=== PATIENT | male | born 1960 | race Caucasian/White ===

== ENCOUNTER 2016-05-04 22:30 | Inpatient (IN) | payer OTHER, MEDICARE ==
[~2016-05-04] VITALS: Ht 170.2 cm; Wt 106.3 kg
[~2016-05-04 22:30] MED LIST: ACETAMINOPHEN1 EAC1 PO; ALDACTONE25 MG PO; ASPIRIN81 M2 PO; Aldactone PO; Aspirin E.C. PO; Ativan PO; BUSPIRONE HCL7.5 MG PO; CARVEDILOL12.5 MG PO; CILOSTAZOL50 MG PO; COLACE100 MG PO; COREG12.5 M1 PO; COREG6.25 M1 PO; Colace PO; Coreg PO; Diabeta,Micronase PO; ERGOCALCIF50000 UNIT PO; Ecotrin PO; FERROUS SULFAT325 MG PO; FOLIC ACID1 MG PO; GLIPIZIDE5 MG PO; GLUCOPHAGE1000 MG PO; Habitrol,Nicoderm CQ TD; INVOKANA300 MG PO; LANTUS 10100 UNITS/ SC; LANTUS 3 M100 UNITS1 SC; LASIX20 MG PO; LASIX40 MG PO; LEVEMIR FL100 UNIT/1 SC; LIPITOR40 MG PO; LISINOPRIL20 MG PO; LISINOPRIL5 MG PO; LOPRESSOR12.5 MG PO; LOVENOX40 MG/0.4 SC; METFORMIN HCL500 MG PO; NICOTINE PATCH1 EAC2 TD; NITROSTAT0.4 MG SL; NO MEDS; NOVOLOG 10100 UNITS/ SC; NOVOLOG PE100 UNITS/ SC; NOVOLOG100 UNIT/1 SC; NOVOLOG100 UNIT/3 SQ; Nitrostat,NitroQuick SL; Oscal 500 w/Vitamin PO; PANTOPRAZOLE SO40 MG PO; PHILLIPS'400 MG/5 M PO; PLAVIX75 MG PO; POLYETHYLENE GL17 GM PO; PRAVACHOL20 MG PO; PRAVACHOL40 MG PO; PRINIVIL10 MG PO; SENNA PLUS TAB1 EACH PO; SIMVASTATIN10 MG PO; SPIRONOLACTONE25 MG PO; THERAGRAN1 TABLET PO; TYLENOL REGULA325 MG PO; Theragran PO; Tylenol Regular Stre PO; WARFARIN SODIU2.5 MG PO; WARFARIN SODIUM5 MG PO; WELLBUTRIN XL150 MG PO; ZESTRIL,PRINIVI10 M1 PO; Zestril,Prinivil PO; Zocor PO
[2016-05-04 23:26] LABS: HEMATOCRIT 39.9 % (38.0-50.0); MCHC 33.6 G/DL (30.0-36.0); MCV 77.5 FL (86-99); MEAN PLAT.VOLUME 9.4 uM^3 (9.0-12.4); PLATELET COUNT 356 K/uL (156-360); RBC DIS.WIDTH-CV 16.2 % (11.8-14.6); RBC DIS.WIDTH-SD 44.4 % (39-53); RED BLOOD COUNT 5.15 M/uL (4.00-5.50); WHITE BLOOD COUNT 13.1 K/uL (4.1-10.2)
[2016-05-04 23:40] LABS: CHLORIDE 101 mEq/L (99-109); POTASSIUM 4.5 mEq/L (3.7-5.4); SODIUM 130 mEq/L (136-147)
[2016-05-04 23:43] LABS: ANION GAP 9 MEQ/L (2-14)
[2016-05-04 23:45] LABS: GFR ESTIMATE (CALCULATED) > 59 mL/min/
[2016-05-04 23:46] LABS: UREA NITROGEN (BUN) 31 mg/dL (9-23)
[2016-05-05 00:09] LABS: TROP-I INTERPRETATION NEGATIVE; TROPONIN-I 0.12 ng/mL (0.0-0.30)
[2016-05-05 00:26] LABS: CREATINE KINASE 65 IU/L (1-294)
[2016-05-05 00:27] LABS: GLUCOSE 646 mg/dL (70-99)
[2016-05-05] MEDS ORDERED: CARVEDILOL6.25 MG PO (01:03)
[2016-05-05] MEDS ORDERED: LISINOPRIL20 MG PO (01:03)
[2016-05-05] MEDS ORDERED: PROTONIX40 MG PO (01:04)
[2016-05-05] MEDS ORDERED: METFORMIN HCL500 MG PO (01:04)
[2016-05-05] MEDS ORDERED: LANTUS 10100 UNITS/ SC (01:05)
[2016-05-05] MEDS ORDERED: GLIPIZIDE5 MG PO (01:05)
[2016-05-05 01:06] LABS: CARBON DIOXIDE (BICARBONATE) 23.4 MEQ/L (20-31)
[2016-05-05] MEDS ORDERED: GABAPENTIN300 MG PO (01:06)
[2016-05-05] MEDS ORDERED: TRAMADOL HCL50 MG PO (01:06)
[2016-05-05] MEDS ORDERED: CITALOPRAM HBR10 MG PO (01:06)
[2016-05-05] MEDS ORDERED: LANTUS 3 M100 UNITS1 SC (01:07)
[2016-05-05 03:00] VITALS: BP 159/81
[2016-05-05 06:37] LABS: TROP-I INTERPRETATION NEGATIVE; TROPONIN-I 0.14 ng/mL (0.0-0.30)
[2016-05-05 06:59] LABS: ANION GAP 10 MEQ/L (2-14); CHLORIDE 97 MEQ/L (99-109); GFR ESTIMATE (CALCULATED) > 59 mL/min/; GLUCOSE 439 mg/dL (70-99); POTASSIUM 3.8 MEQ/L (3.7-5.4); SAMPLE HEMOLYSIS CHECK 0; SAMPLE ICTERIC CHECK 0; SAMPLE LIPEMIA CHECK 0; SODIUM 132 MEQ/L (136-147); UREA NITROGEN (BUN) 27 mg/dL (9-23)
[2016-05-05 07:45] VITALS: BP 188/96
[2016-05-05 11:00] LABS: POINT-OF-CARE METER ID UU13113781
[2016-05-05 11:27] LABS: TROP-I INTERPRETATION NEGATIVE; TROPONIN-I 0.13 ng/mL (0.0-0.30)
[2016-05-05 11:58] VITALS: BP 144/70
[2016-05-05 12:44] LABS: POINT-OF-CARE METER ID UU13113781
[2016-05-05 12:44] LABS: POINT-OF-CARE METER ID UU14174216
[2016-05-05 12:45] LABS: POINT-OF-CARE METER ID UU13113702
[2016-05-05 15:58] LABS: POINT-OF-CARE METER ID UU14174216
[2016-05-05 16:34] VITALS: BP 142/73
[2016-05-05 19:00] VITALS: BP 160/74
[2016-05-05 22:48] LABS: POINT-OF-CARE METER ID UU13113781
[2016-05-06 00:28] VITALS: BP 134/64
[2016-05-06 04:00] VITALS: BP 137/62
[2016-05-06 08:10] VITALS: BP 142/73
[2016-05-06 11:30] VITALS: BP 188/79
[2016-05-06 12:22] LABS: POINT-OF-CARE METER ID UU14174216
[2016-05-06 16:00] VITALS: BP 143/72
[2016-05-06 17:28] LABS: POINT-OF-CARE METER ID UU14174216
[2016-05-06 19:15] VITALS: BP 131/60
[2016-05-06 21:39] LABS: POINT-OF-CARE METER ID UU13113698
[2016-05-07] VITALS (7 sets, daily range): BP systolic 129–170; BP diastolic 58–78
[2016-05-07 07:25] LABS: HEMATOCRIT 40.7 % (38.0-50.0); MCHC 32.7 G/DL (30.0-36.0); MCV 79.6 FL (86-99); MEAN PLAT.VOLUME 9.4 uM^3 (9.0-12.4); PLATELET COUNT 319 K/uL (156-360); RBC DIS.WIDTH-CV 16.4 % (11.8-14.6); RED BLOOD COUNT 5.11 M/uL (4.00-5.50); WHITE BLOOD COUNT 12.6 K/uL (4.1-10.2)
[2016-05-07 07:32] LABS: BASOPHIL COUNT 0.1 K/uL (0-0.1); EOSINOPHIL (%) 2.3 % (0-5); EOSINOPHIL COUNT 0.3 K/uL (0-0.3); IMMATURE GRANULOCYTE (%) 0.9 % (0.0-0.7); IMMATURE GRANULOCYTE COUNT 0.1 K/uL; LYMPHOCYTE COUNT 1.9 K/uL (1.0-2.8); MONOCYTE (%) 10.5 % (3-12); MONOCYTE COUNT 1.3 K/uL (0-0.8); NEUTROPHIL (%) 70.8 % (45-76); NEUTROPHIL COUNT 8.9 K/uL (1.8-6.4)
[2016-05-07 07:46] LABS: ANION GAP 9 MEQ/L (2-14); CHLORIDE 99 MEQ/L (99-109); GFR ESTIMATE (CALCULATED) > 59 mL/min/; SAMPLE HEMOLYSIS CHECK 0; SAMPLE ICTERIC CHECK 0; SAMPLE LIPEMIA CHECK 0; SODIUM 134 MEQ/L (136-147); UREA NITROGEN (BUN) 31 mg/dL (9-23)
[2016-05-07 07:49] LABS: GLUCOSE 115 mg/dL (70-99)
[2016-05-08 03:41] VITALS: BP 132/61
[2016-05-08 06:02] LABS: HEMATOCRIT 41.3 % (38.0-50.0); MCH 26.3 PG (29.0-34.0); MCHC 32.7 G/DL (30.0-36.0); MCV 80.4 FL (86-99); MEAN PLAT.VOLUME 9.7 uM^3 (9.0-12.4); PLATELET COUNT 323 K/uL (156-360); RBC DIS.WIDTH-CV 16.4 % (11.8-14.6); RBC DIS.WIDTH-SD 48.1 % (39-53); RED BLOOD COUNT 5.14 M/uL (4.00-5.50); WHITE BLOOD COUNT 11.2 K/uL (4.1-10.2)
[2016-05-08 06:15] LABS: EOSINOPHIL (%) 1.9 % (0-5); EOSINOPHIL COUNT 0.2 K/uL (0-0.3); IMMATURE GRANULOCYTE COUNT 0.1 K/uL; LYMPHOCYTE COUNT 1.7 K/uL (1.0-2.8); MONOCYTE (%) 8.8 % (3-12); NEUTROPHIL (%) 72.6 % (45-76); NEUTROPHIL COUNT 8.1 K/uL (1.8-6.4)
[2016-05-08 06:28] LABS: ANION GAP 9 MEQ/L (2-14); CHLORIDE 100 MEQ/L (99-109); GFR ESTIMATE (CALCULATED) 56 mL/min/; GLUCOSE 160 mg/dL (70-99); POTASSIUM 4.1 MEQ/L (3.7-5.4); SAMPLE HEMOLYSIS CHECK 0; SAMPLE ICTERIC CHECK 0; SAMPLE LIPEMIA CHECK 0; SODIUM 133 MEQ/L (136-147); UREA NITROGEN (BUN) 31 mg/dL (9-23)
[2016-05-08 06:50] VITALS: BP 131/61
[2016-05-08 11:00] VITALS: BP 136/64
[2016-05-08] MEDS ORDERED: NOVOLOG PE100 UNITS/ SC (13:10)
[2016-05-08] MEDS ORDERED: LEVEMIR100 UNIT/2 SC (13:10)
[2016-05-08] MEDS ORDERED: Zeasorb Antifungal T TP (13:11)
[2016-05-08] MEDS ORDERED: TRAMADOL HCL50 MG PO (13:11)
[2016-05-08] MEDS ORDERED: LASIX40 MG PO (13:12)
[2016-05-08] MEDS ORDERED: MILK OF MAGNESI10 ML PO (13:13)
== END 2016-05-08 15:26 | DRG 293 ==
LOC: EME → EDBD 22:30 → EME 22:30 → 2EAST 05-05 01:50 → EDOF 05-05 01:50 → 4EAST 05-05 02:48 → 2EAST 05-07 00:01
PROVIDERS: Emergency Medicine; Family Medicine
DX: I50.41 Acute combined systolic (congestive) and diastolic (congestive) heart failure (principal); E11.65 Type 2 diabetes mellitus with hyperglycemia; E11.42 Type 2 diabetes mellitus with diabetic polyneuropathy; I70.213 Atherosclerosis of native arteries of extremities with intermittent claudication, bilateral legs; I25.10 Atherosclerotic heart disease of native coronary artery without angina pectoris; J44.9 Chronic obstructive pulmonary disease, unspecified; I25.5 Ischemic cardiomyopathy; I10 Essential (primary) hypertension; E78.5 Hyperlipidemia, unspecified; G47.33 Obstructive sleep apnea (adult) (pediatric); F41.9 Anxiety disorder, unspecified; F32.9 Major depressive disorder, single episode, unspecified; F17.210 Nicotine dependence, cigarettes, uncomplicated; E66.9 Obesity, unspecified; I25.2 Old myocardial infarction; Z91.14 Patient's other noncompliance with medication regimen; Z68.38 Body mass index [BMI] 38.0-38.9, adult; Z86.73 Personal history of transient ischemic attack (TIA), and cerebral infarction without residual deficits; Z95.5 Presence of coronary angioplasty implant and graft; Z95.1 Presence of aortocoronary bypass graft
CPT/HCPCS: 71020; 80048; 82009; 82550; 82803; 82948; 83880; 84484; 85025; 85027; 93005; 94640; 94799; 97530 GO; 99281; 99285; J1650; J1815; J1940

== ENCOUNTER 2016-07-29 09:30 | Inpatient (IN) | payer OTHER, MEDICARE ==
[~2016-07-29] VITALS: Ht 170.2 cm; Wt 108.2 kg
[~2016-07-29 09:30] MED LIST changes: +CARVEDILOL6.25 MG PO; +CITALOPRAM HBR10 MG PO; +GABAPENTIN300 MG PO; +LEVEMIR100 UNIT/2 SC; +MILK OF MAGNESI10 ML PO; +PROTONIX40 MG PO; +TRAMADOL HCL50 MG PO; +Zeasorb Antifungal T TP
[2016-07-29 10:22] LABS: BASOPHIL COUNT 0.1 K/uL (0-0.1); EOSINOPHIL (%) 1.1 % (0-5); EOSINOPHIL COUNT 0.2 K/uL (0-0.3); HEMATOCRIT 43.1 % (38.0-50.0); IMMATURE GRANULOCYTE (%) 0.9 % (0.0-0.7); IMMATURE GRANULOCYTE COUNT 0.2 K/uL; LYMPHOCYTE COUNT 1.7 K/uL (1.0-2.8); MCH 25.8 PG (29.0-34.0); MCHC 31.1 G/DL (30.0-36.0); MEAN PLAT.VOLUME 9.4 uM^3 (9.0-12.4); MONOCYTE (%) 4.9 % (3-12); MONOCYTE COUNT 1.1 K/uL (0-0.8); NEUTROPHIL (%) 85.1 % (45-76); PLATELET COUNT 350 K/uL (156-360); RBC DIS.WIDTH-CV 17.4 % (11.8-14.6); RBC DIS.WIDTH-SD 52.7 % (39-53); RED BLOOD COUNT 5.19 M/uL (4.00-5.50); WHITE BLOOD COUNT 22.4 K/uL (4.1-10.2)
[2016-07-29 10:35] LABS: CHLORIDE 100 mEq/L (99-109); POTASSIUM 4.5 mEq/L (3.7-5.4); SODIUM 135 mEq/L (136-147)
[2016-07-29 10:37] LABS: GLUCOSE 222 mg/dL (70-99)
[2016-07-29 10:38] LABS: ANION GAP 13 MEQ/L (2-14)
[2016-07-29 10:41] LABS: GFR ESTIMATE (CALCULATED) > 59 mL/min/; UREA NITROGEN (BUN) 24 mg/dL (9-23)
[2016-07-29 10:42] LABS: TROP-I INTERPRETATION NEGATIVE; TROPONIN-I 0.03 ng/mL (0.0-0.30)
[2016-07-29] MEDS ORDERED: LO-DOSE ASPIRIN81 M2 PO (15:08)
[2016-07-29] MEDS ORDERED: LASIX40 MG PO (15:09)
[2016-07-29] MEDS ORDERED: LANTUS 10100 UNITS/ SC (15:11)
[2016-07-29 15:59] LABS: ADD MIUA? YES; BILIRUBIN NEGATIVE; BLOOD NEGATIVE; COLOR YELLOW ((YELLOW)); GLUCOSE (STRIP) NEGATIVE; KETONES NEGATIVE; LEUKOCYTES NEGATIVE; NITRITE NEGATIVE; PROTEIN (STRIP) 100; SPECIFIC GRAVITY 1.013 (1.000-1.030); UROBILINOGEN 0.2 MG/DL (0.2-1.0)
[2016-07-29 16:17] LABS: BACTERIA NONE SEEN /HPF; EPITHELIAL CELLS NONE SEEN /HPF; HYALINE CASTS 0-5 /LPF; MUCUS NONE SEEN /LPF; RED BLOOD CELLS 0-5 /HPF (0-5); UCUL ADDED? NO; WHITE BLOOD CELLS 0-5 /HPF (0-5)
[2016-07-29 19:30] VITALS: BP 135/61
[2016-07-29 23:48] VITALS: BP 136/65
[2016-07-30 03:46] VITALS: BP 129/60
[2016-07-30 06:18] LABS: POINT-OF-CARE METER ID UU13113725
[2016-07-30 07:16] LABS: ANION GAP 10 MEQ/L (2-14); CHLORIDE 100 MEQ/L (99-109); GFR ESTIMATE (CALCULATED) > 59 mL/min/; POTASSIUM 4.3 MEQ/L (3.7-5.4); SAMPLE HEMOLYSIS CHECK 0; SAMPLE ICTERIC CHECK 0; SAMPLE LIPEMIA CHECK 0; SODIUM 137 MEQ/L (136-147); UREA NITROGEN (BUN) 27 mg/dL (9-23)
[2016-07-30 07:17] LABS: GLUCOSE 87 mg/dL (70-99)
[2016-07-30 07:25] LABS: BASOPHIL COUNT 0.1 K/uL (0-0.1); EOSINOPHIL (%) 1.8 % (0-5); EOSINOPHIL COUNT 0.2 K/uL (0-0.3); HEMATOCRIT 40.9 % (38.0-50.0); IMMATURE GRANULOCYTE (%) 0.7 % (0.0-0.7); IMMATURE GRANULOCYTE COUNT 0.1 K/uL; LYMPHOCYTE COUNT 2.9 K/uL (1.0-2.8); MCH 26.4 PG (29.0-34.0); MCHC 31.5 G/DL (30.0-36.0); MCV 83.6 FL (86-99); MEAN PLAT.VOLUME 9.1 uM^3 (9.0-12.4); MONOCYTE (%) 9.3 % (3-12); MONOCYTE COUNT 1.3 K/uL (0-0.8); PLATELET COUNT 324 K/uL (156-360); RBC DIS.WIDTH-CV 17.5 % (11.8-14.6); RBC DIS.WIDTH-SD 53.4 % (39-53); RED BLOOD COUNT 4.89 M/uL (4.00-5.50)
[2016-07-30 07:37] LABS: WHITE BLOOD COUNT 13.6 K/uL (4.1-10.2)
[2016-07-30 08:19] VITALS: BP 177/84
[2016-07-30 12:00] VITALS: BP 187/86
[2016-07-30 16:00] VITALS: BP 130/58
[2016-07-30 16:50] LABS: POINT-OF-CARE METER ID UU13113725
[2016-07-30 19:04] VITALS: BP 144/67
[2016-07-30 22:42] VITALS: BP 151/81
[2016-07-31 03:03] VITALS: BP 139/65
[2016-07-31 05:36] LABS: BASOPHIL COUNT 0.1 K/uL (0-0.1); EOSINOPHIL (%) 1.2 % (0-5); EOSINOPHIL COUNT 0.2 K/uL (0-0.3); HEMATOCRIT 40.4 % (38.0-50.0); IMMATURE GRANULOCYTE (%) 0.5 % (0.0-0.7); IMMATURE GRANULOCYTE COUNT 0.1 K/uL; LYMPHOCYTE COUNT 2.1 K/uL (1.0-2.8); MCH 26.4 PG (29.0-34.0); MCHC 31.9 G/DL (30.0-36.0); MCV 82.8 FL (86-99); MEAN PLAT.VOLUME 8.9 uM^3 (9.0-12.4); MONOCYTE (%) 8.5 % (3-12); MONOCYTE COUNT 1.2 K/uL (0-0.8); NEUTROPHIL (%) 73.7 % (45-76); PLATELET COUNT 297 K/uL (156-360); RBC DIS.WIDTH-CV 17.3 % (11.8-14.6); RBC DIS.WIDTH-SD 52.3 % (39-53); RED BLOOD COUNT 4.88 M/uL (4.00-5.50); WHITE BLOOD COUNT 13.5 K/uL (4.1-10.2)
[2016-07-31 06:03] LABS: ANION GAP 11 MEQ/L (2-14); CHLORIDE 99 MEQ/L (99-109); GFR ESTIMATE (CALCULATED) 44 mL/min/; GLUCOSE 97 mg/dL (70-99); POTASSIUM 4.3 MEQ/L (3.7-5.4); SAMPLE HEMOLYSIS CHECK 0; SAMPLE ICTERIC CHECK 0; SAMPLE LIPEMIA CHECK 0; SODIUM 135 MEQ/L (136-147); UREA NITROGEN (BUN) 31 mg/dL (9-23)
[2016-07-31 07:30] VITALS: BP 139/69
[2016-07-31 11:16] VITALS: BP 145/65
[2016-07-31 14:12] LABS: ALKALINE PHOSPHATASE 79 IU/L (3-129); DIRECT BILIRUBIN 0.1 mg/dL (0.0-0.3); LIPASE 16 U/L (1.0-51.0); TOTAL BILIRUBIN 0.4 MG/DL (0.0-1.0)
[2016-07-31 15:24] VITALS: BP 111/57
[2016-07-31 19:09] VITALS: BP 117/56
[2016-07-31 21:12] LABS: POINT-OF-CARE METER ID UU13113725
[2016-07-31 23:24] VITALS: BP 120/59
[2016-08-01] VITALS (7 sets, daily range): BP systolic 99–156; BP diastolic 51–86
[2016-08-01 06:56] LABS: BASOPHIL COUNT 0.1 K/uL (0-0.1); EOSINOPHIL COUNT 0.3 K/uL (0-0.3); HEMATOCRIT 39.8 % (38.0-50.0); IMMATURE GRANULOCYTE (%) 0.9 % (0.0-0.7); IMMATURE GRANULOCYTE COUNT 0.1 K/uL; INSTRUMENT ABS NEUTROPHIL CT 9.3 K/uL; LYMPHOCYTE COUNT 1.9 K/uL (1.0-2.8); MCH 26.6 PG (29.0-34.0); MCHC 31.9 G/DL (30.0-36.0); MCV 83.3 FL (86-99); MEAN PLAT.VOLUME 9.3 uM^3 (9.0-12.4); MONOCYTE (%) 9.5 % (3-12); MONOCYTE COUNT 1.2 K/uL (0-0.8); NEUTROPHIL (%) 72.4 % (45-76); NEUTROPHIL COUNT 9.3 K/uL (1.8-6.4); PLATELET COUNT 291 K/uL (156-360); RBC DIS.WIDTH-CV 17.2 % (11.8-14.6); RBC DIS.WIDTH-SD 51.8 % (39-53); RED BLOOD COUNT 4.78 M/uL (4.00-5.50); WHITE BLOOD COUNT 12.8 K/uL (4.1-10.2)
[2016-08-01 07:20] LABS: ANION GAP 8 MEQ/L (2-14); CHLORIDE 99 MEQ/L (99-109); GFR ESTIMATE (CALCULATED) 44 mL/min/; POTASSIUM 4.2 MEQ/L (3.7-5.4); SAMPLE HEMOLYSIS CHECK 0; SAMPLE ICTERIC CHECK 0; SAMPLE LIPEMIA CHECK 0; SODIUM 132 MEQ/L (136-147); UREA NITROGEN (BUN) 32 mg/dL (9-23)
[2016-08-01 07:22] LABS: GLUCOSE 156 mg/dL (70-99)
[2016-08-01 16:53] LABS: POINT-OF-CARE METER ID UU13113725
[2016-08-01 20:55] LABS: POINT-OF-CARE METER ID UU13113725
[2016-08-02 03:23] VITALS: BP 155/81
[2016-08-02 05:44] LABS: POINT-OF-CARE METER ID UU13113725
[2016-08-02 06:53] LABS: BASOPHIL COUNT 0.1 K/uL (0-0.1); EOSINOPHIL (%) 2.5 % (0-5); EOSINOPHIL COUNT 0.3 K/uL (0-0.3); IMMATURE GRANULOCYTE (%) 0.9 % (0.0-0.7); IMMATURE GRANULOCYTE COUNT 0.1 K/uL; INSTRUMENT ABS NEUTROPHIL CT 8.5 K/uL; LYMPHOCYTE COUNT 1.7 K/uL (1.0-2.8); MCH 26.4 PG (29.0-34.0); MCHC 31.5 G/DL (30.0-36.0); MCV 83.9 FL (86-99); MEAN PLAT.VOLUME 9.2 uM^3 (9.0-12.4); MONOCYTE (%) 8.5 % (3-12); NEUTROPHIL (%) 72.9 % (45-76); NEUTROPHIL COUNT 8.5 K/uL (1.8-6.4); PLATELET COUNT 280 K/uL (156-360); RED BLOOD COUNT 4.77 M/uL (4.00-5.50); WHITE BLOOD COUNT 11.6 K/uL (4.1-10.2)
[2016-08-02 07:12] LABS: ANION GAP 9 MEQ/L (2-14); CHLORIDE 102 MEQ/L (99-109); GFR ESTIMATE (CALCULATED) 56 mL/min/; GLUCOSE 157 mg/dL (70-99); POTASSIUM 4.9 MEQ/L (3.7-5.4); SAMPLE HEMOLYSIS CHECK 0; SAMPLE ICTERIC CHECK 0; SAMPLE LIPEMIA CHECK 0; SODIUM 135 MEQ/L (136-147); UREA NITROGEN (BUN) 32 mg/dL (9-23)
[2016-08-02 07:17] VITALS: BP 162/73
[2016-08-02] MEDS ORDERED: PROTONIX40 MG PO (12:37)
[2016-08-02] MEDS ORDERED: LEVOFLOXACIN750 MG PO (12:37)
[2016-08-02] MEDS ORDERED: REGLAN5 MG PO (12:37)
[2016-08-02 13:09] VITALS: BP 156/72
== END 2016-08-02 14:47 | disposition home or self-care (01) | DRG 191 ==
LOC: EME → EDBD 09:30 → EME 09:30 → 5EAST 13:43 → EDOF 13:43 → 5EAST 15:37
PROVIDERS: Emergency Medicine; Family Medicine
DX: J44.1 Chronic obstructive pulmonary disease with (acute) exacerbation (principal); N17.9 Acute kidney failure, unspecified; I25.5 Ischemic cardiomyopathy; I11.0 Hypertensive heart disease with heart failure; I50.22 Chronic systolic (congestive) heart failure; E11.42 Type 2 diabetes mellitus with diabetic polyneuropathy; E78.5 Hyperlipidemia, unspecified; R09.02 Hypoxemia; I25.10 Atherosclerotic heart disease of native coronary artery without angina pectoris; Z86.73 Personal history of transient ischemic attack (TIA), and cerebral infarction without residual deficits; G47.33 Obstructive sleep apnea (adult) (pediatric); I25.2 Old myocardial infarction; E66.9 Obesity, unspecified; Z68.37 Body mass index [BMI] 37.0-37.9, adult; F41.9 Anxiety disorder, unspecified; F32.9 Major depressive disorder, single episode, unspecified; F17.210 Nicotine dependence, cigarettes, uncomplicated; D72.829 Elevated white blood cell count, unspecified
CPT/HCPCS: 71010; 71275; 80048; 80076; 81003; 82565; 82948; 83690; 84484; 84520; 85025; 85027; 87040; 93005; 94640; 94640 76; 94799; 97530 GO; 97530 GP; 99202; 99281; 99285; J1650; J1815; J1956; J2405; J2765; J7030

== ENCOUNTER 2016-10-12 00:13 | Emergency (ER) | payer OTHER ==
[~2016-10-12] VITALS: Ht 170.2 cm; Wt 117.0 kg
[~2016-10-12 00:13] MED LIST changes: +LEVOFLOXACIN750 MG PO; +LO-DOSE ASPIRIN81 M2 PO; +REGLAN5 MG PO
[2016-10-12 02:40] VITALS: BP 165/89
== END 2016-10-12 02:42 | disposition home or self-care (01) ==
LOC: EME → EDBD 00:13 → EME 02:42
DX: T14.8 Other injury of unspecified body region (principal); S00.91XA Abrasion of unspecified part of head, initial encounter; W18.30XA Fall on same level, unspecified, initial encounter; I10 Essential (primary) hypertension; J44.9 Chronic obstructive pulmonary disease, unspecified; E78.5 Hyperlipidemia, unspecified; Z95.1 Presence of aortocoronary bypass graft; I25.2 Old myocardial infarction; Z86.73 Personal history of transient ischemic attack (TIA), and cerebral infarction without residual deficits; Z79.84 Long term (current) use of oral hypoglycemic drugs; Z79.899 Other long term (current) drug therapy; Z79.4 Long term (current) use of insulin; Z79.82 Long term (current) use of aspirin; F17.200 Nicotine dependence, unspecified, uncomplicated
CPT/HCPCS: 70450; 99281; 99284

== ENCOUNTER 2016-11-13 14:16 | Emergency (ER) | payer OTHER ==
[~2016-11-13] VITALS: Ht 170.2 cm; Wt 110.1 kg
[2016-11-13 14:42] VITALS: BP 196/91
[2016-11-13] MEDS ORDERED: LIDODERM 5% P1 PATCH TD (16:26)
[2016-11-13] MEDS ORDERED: FLEXERIL10 MG PO (16:26)
[2016-11-13] MEDS ORDERED: NAPROSYN500 MG PO (16:26)
== END 2016-11-13 16:54 | disposition home or self-care (01) ==
LOC: EME 14:16
DX: M54.5 Low back pain (principal); W01.0XXA Fall on same level from slipping, tripping and stumbling without subsequent striking against object, initial encounter; I10 Essential (primary) hypertension; E11.9 Type 2 diabetes mellitus without complications; Z79.84 Long term (current) use of oral hypoglycemic drugs; Z86.73 Personal history of transient ischemic attack (TIA), and cerebral infarction without residual deficits; Z89.429 Acquired absence of other toe(s), unspecified side; Z95.1 Presence of aortocoronary bypass graft; F17.200 Nicotine dependence, unspecified, uncomplicated
CPT/HCPCS: 99281; 99284; J1885

== ENCOUNTER 2016-11-30 12:28 | Inpatient (IN) | payer OTHER ==
[~2016-11-30] VITALS: Ht 170.2 cm; Wt 109.9 kg
[~2016-11-30 12:28] MED LIST changes: +FLEXERIL10 MG PO; +LIDODERM 5% P1 PATCH TD; +NAPROSYN500 MG PO
[2016-11-30 13:06] LABS: CREATININE 0.8 mg/dL (0.6-1.3); POTASSIUM 4.4 mEq/L (3.7-5.4)
[2016-11-30 13:16] LABS: BASOPHIL COUNT 0.1 K/uL (0-0.1); EOSINOPHIL (%) 1.7 % (0-5); EOSINOPHIL COUNT 0.2 K/uL (0-0.3); HEMATOCRIT 41.3 % (38.0-50.0); IMMATURE GRANULOCYTE (%) 1.1 % (0.0-0.7); IMMATURE GRANULOCYTE COUNT 0.1 K/uL; INSTRUMENT ABS NEUTROPHIL CT 8.9 K/uL; LYMPHOCYTE COUNT 1.6 K/uL (1.0-2.8); MCH 24.7 PG (29.0-34.0); MCHC 31.2 G/DL (30.0-36.0); MEAN PLAT.VOLUME 9.5 uM^3 (9.0-12.4); MONOCYTE (%) 6.7 % (3-12); MONOCYTE COUNT 0.8 K/uL (0-0.8); NEUTROPHIL (%) 76.5 % (45-76); NEUTROPHIL COUNT 8.9 K/uL (1.8-6.4); PLATELET COUNT 292 K/uL (156-360); RBC DIS.WIDTH-CV 17.7 % (11.8-14.6); RBC DIS.WIDTH-SD 49.3 % (39-53); RED BLOOD COUNT 5.23 M/uL (4.00-5.50); WHITE BLOOD COUNT 11.6 K/uL (4.1-10.2)
[2016-11-30 13:22] LABS: CARBON DIOXIDE (BICARBONATE) 21.7 MEQ/L (20-31)
[2016-11-30 13:28] LABS: CHLORIDE 99 mEq/L (99-109); POTASSIUM 4.4 mEq/L (3.7-5.4); SODIUM 130 mEq/L (136-147)
[2016-11-30 13:31] LABS: ANION GAP 11 MEQ/L (2-14)
[2016-11-30 13:32] LABS: TOTAL BILIRUBIN 0.5 mg/dL (0.0-1.0)
[2016-11-30 13:33] LABS: ALKALINE PHOSPHATASE 112 IU/L (3-129)
[2016-11-30 13:34] LABS: GFR ESTIMATE (CALCULATED) > 59 mL/min/
[2016-11-30 13:35] LABS: DIRECT BILIRUBIN 0.3 mg/dL (0.0-0.3); UREA NITROGEN (BUN) 17 mg/dL (9-23)
[2016-11-30 13:37] LABS: LIPASE 23 U/L (1.0-51.0)
[2016-11-30 13:38] LABS: GLUCOSE 560 mg/dL (70-99)
[2016-11-30 14:30] LABS: ADD MIUA? YES; BILIRUBIN NEGATIVE; BLOOD NEGATIVE; COLOR STRAW ((YELLOW)); GLUCOSE (STRIP) >=500; KETONES NEGATIVE; LEUKOCYTES NEGATIVE; NITRITE NEGATIVE; PROTEIN (STRIP) 100; SPECIFIC GRAVITY 1.029 (1.000-1.030); UROBILINOGEN 0.2 MG/DL (0.2-1.0)
[2016-11-30 14:33] LABS: BACTERIA NONE SEEN /HPF; EPITHELIAL CELLS RARE /HPF; MUCUS NONE SEEN /LPF; RED BLOOD CELLS 0-5 /HPF (0-5); UCUL ADDED? NO; WHITE BLOOD CELLS 0-5 /HPF (0-5)
[2016-11-30 14:39] LABS: AMPHETAMINE NEGATIVE (500 ng/mL); BARBITURATES NEGATIVE (200 ng/mL); BENZODIAZEPINES NEGATIVE (150 ng/mL); COCAINE NEGATIVE (150 ng/mL); INTERNAL CONTROLS VALID? YES; METHADONE NEGATIVE (200 ng/mL); METHAMPHETAMINE NEGATIVE (500 ng/mL); OPIATES (MORPHINE) NEGATIVE (100 ng/mL); OXYCODONE NEGATIVE (100 ng/mL); PHENCYCLIDINE NEGATIVE (25 ng/mL); PROPOXYPHENE NEGATIVE (300 ng/mL); THC CANNABINOIDS NEGATIVE (50 ng/mL); TRICYCLIC ANTIDEPRESSANTS NEGATIVE (300 ng/mL)
[2016-11-30] MEDS ORDERED: FUROSEMIDE40 MG PO (14:46)
[2016-11-30] MEDS ORDERED: SYMBICORT60 INHALAT IH (14:46)
[2016-11-30 14:50] LABS: POINT-OF-CARE METER ID UU13113747
[2016-11-30 15:06] LABS: POINT-OF-CARE METER ID UU13113747
[2016-11-30 15:30] LABS: POINT-OF-CARE METER ID UU13113731
[2016-11-30 16:53] LABS: POINT-OF-CARE METER ID UU13113731
[2016-11-30 16:58] LABS: METH RESISTANT S AUREUS PCR NEGATIVE (NEGATIVE)
[2016-11-30 17:09] LABS: PROBE CHECK PASS; SPECIMEN PROCESSING CONTROL PASS
[2016-11-30 17:57] LABS: POINT-OF-CARE METER ID UU13113731
[2016-11-30 18:29] LABS: TROP-I INTERPRETATION NEGATIVE; TROPONIN-I 0.12 ng/mL (0.0-0.30)
[2016-11-30 18:51] LABS: POINT-OF-CARE METER ID UU13113731
[2016-11-30 19:00] VITALS: BP 152/101
[2016-11-30 19:54] LABS: POINT-OF-CARE METER ID UU13113731; POINT-OF-CARE USER ID PHATLC
[2016-11-30 20:17] LABS: ANION GAP 9 MEQ/L (2-14); CHLORIDE 103 MEQ/L (99-109); GFR ESTIMATE (CALCULATED) > 59 mL/min/; POTASSIUM 3.9 MEQ/L (3.7-5.4); SAMPLE HEMOLYSIS CHECK 0; SAMPLE ICTERIC CHECK 0; SAMPLE LIPEMIA CHECK 0; SODIUM 134 MEQ/L (136-147); UREA NITROGEN (BUN) 14 mg/dL (9-23)
[2016-11-30 20:30] LABS: GLUCOSE 216 mg/dL (70-99)
[2016-11-30 21:00] VITALS: BP 179/99
[2016-11-30 21:05] LABS: POINT-OF-CARE METER ID UU13113731; POINT-OF-CARE USER ID PHATLC
[2016-11-30 21:55] LABS: POINT-OF-CARE METER ID UU14208751
[2016-11-30 22:00] VITALS: BP 175/79
[2016-11-30 23:00] VITALS: BP 161/84
[2016-11-30 23:09] LABS: POINT-OF-CARE METER ID UU13113731; POINT-OF-CARE USER ID PHATLC
[2016-11-30 23:55] LABS: POINT-OF-CARE METER ID UU14208751; POINT-OF-CARE USER ID PHATLC
[2016-12-01] VITALS (13 sets, daily range): BP systolic 120–196; BP diastolic 57–97
[2016-12-01 00:40] LABS: CHLORIDE 105 mEq/L (99-109); POTASSIUM 4.1 mEq/L (3.7-5.4); SODIUM 136 mEq/L (136-147)
[2016-12-01 00:41] LABS: GLUCOSE 135 mg/dL (70-99)
[2016-12-01 00:43] LABS: ANION GAP 9 MEQ/L (2-14)
[2016-12-01 00:45] LABS: GFR ESTIMATE (CALCULATED) > 59 mL/min/
[2016-12-01 00:46] LABS: UREA NITROGEN (BUN) 13 mg/dL (9-23)
[2016-12-01 01:02] LABS: POINT-OF-CARE METER ID UU13113731; POINT-OF-CARE USER ID PHATLC
[2016-12-01 02:22] LABS: POINT-OF-CARE METER ID UU13113731; POINT-OF-CARE USER ID PHATLC
[2016-12-01 03:09] LABS: POINT-OF-CARE METER ID UU13113731
[2016-12-01 04:28] LABS: POINT-OF-CARE METER ID UU13113731
[2016-12-01 05:10] LABS: CHLORIDE 104 mEq/L (99-109); POTASSIUM 3.9 mEq/L (3.7-5.4); SODIUM 136 mEq/L (136-147)
[2016-12-01 05:12] LABS: GLUCOSE 120 mg/dL (70-99)
[2016-12-01 05:13] LABS: ANION GAP 9 MEQ/L (2-14)
[2016-12-01 05:16] LABS: GFR ESTIMATE (CALCULATED) > 59 mL/min/
[2016-12-01 05:17] LABS: UREA NITROGEN (BUN) 13 mg/dL (9-23)
[2016-12-01 05:22] LABS: POINT-OF-CARE METER ID UU14162636
[2016-12-01 06:43] LABS: POINT-OF-CARE METER ID UU14162636; POINT-OF-CARE USER ID PHATLC
[2016-12-01 07:36] LABS: POINT-OF-CARE METER ID UU14162636
[2016-12-01 08:41] LABS: POINT-OF-CARE METER ID UU13113731
[2016-12-01 09:12] LABS: ANION GAP 9 MEQ/L (2-14); CHLORIDE 103 MEQ/L (99-109); GFR ESTIMATE (CALCULATED) > 59 mL/min/; GLUCOSE 150 mg/dL (70-99); POTASSIUM 4.2 MEQ/L (3.7-5.4); SAMPLE HEMOLYSIS CHECK 0; SAMPLE ICTERIC CHECK 0; SAMPLE LIPEMIA CHECK 0; SODIUM 136 MEQ/L (136-147); UREA NITROGEN (BUN) 13 mg/dL (9-23)
[2016-12-01 09:20] LABS: POINT-OF-CARE METER ID UU14162636
[2016-12-01 12:41] LABS: POINT-OF-CARE METER ID UU14208751
[2016-12-01 16:57] LABS: POINT-OF-CARE METER ID UU13113747
[2016-12-01 17:06] LABS: POINT-OF-CARE METER ID UU14208750
[2016-12-01 19:17] LABS: TROP-I INTERPRETATION NEGATIVE; TROPONIN-I 0.09 ng/mL (0.0-0.30)
[2016-12-01 20:07] LABS: POTASSIUM 4.9 MEQ/L (3.7-5.4)
[2016-12-01 21:27] LABS: POINT-OF-CARE METER ID UU14208750
[2016-12-02] VITALS (7 sets, daily range): BP systolic 91–188; BP diastolic 53–88
[2016-12-02 02:32] LABS: POINT-OF-CARE METER ID UU14208750
[2016-12-02 03:03] LABS: TROP-I INTERPRETATION NEGATIVE; TROPONIN-I 0.09 ng/mL (0.0-0.30)
[2016-12-02 05:34] LABS: POINT-OF-CARE METER ID UU14208750
[2016-12-02 09:53] LABS: POINT-OF-CARE METER ID UU14208750
[2016-12-02 11:17] LABS: TROP-I INTERPRETATION NEGATIVE; TROPONIN-I 0.07 ng/mL (0.0-0.30)
[2016-12-02 14:48] LABS: POINT-OF-CARE METER ID UU14208750
[2016-12-02 18:47] LABS: POINT-OF-CARE METER ID UU14208750
[2016-12-02 21:46] LABS: POINT-OF-CARE METER ID UU14208750
[2016-12-03 01:55] LABS: POINT-OF-CARE METER ID UU14208750
[2016-12-03 03:45] VITALS: BP 120/59
[2016-12-03 05:36] LABS: POINT-OF-CARE METER ID UU14208750
[2016-12-03 05:51] LABS: BASOPHIL COUNT 0.1 K/uL (0-0.1); EOSINOPHIL (%) 2.4 % (0-5); EOSINOPHIL COUNT 0.3 K/uL (0-0.3); HEMATOCRIT 39.9 % (38.0-50.0); IMMATURE GRANULOCYTE (%) 0.7 % (0.0-0.7); IMMATURE GRANULOCYTE COUNT 0.1 K/uL; INSTRUMENT ABS NEUTROPHIL CT 8.1 K/uL; LYMPHOCYTE COUNT 2.1 K/uL (1.0-2.8); MCH 25.4 PG (29.0-34.0); MCHC 31.6 G/DL (30.0-36.0); MCV 80.3 FL (86-99); MEAN PLAT.VOLUME 9.4 uM^3 (9.0-12.4); MONOCYTE (%) 8.5 % (3-12); NEUTROPHIL (%) 69.8 % (45-76); NEUTROPHIL COUNT 8.1 K/uL (1.8-6.4); PLATELET COUNT 305 K/uL (156-360); RBC DIS.WIDTH-SD 51.6 % (39-53); RED BLOOD COUNT 4.97 M/uL (4.00-5.50); WHITE BLOOD COUNT 11.6 K/uL (4.1-10.2)
[2016-12-03 06:29] LABS: ANION GAP 9 MEQ/L (2-14); CHLORIDE 105 MEQ/L (99-109); GFR ESTIMATE (CALCULATED) > 59 mL/min/; POTASSIUM 4.4 MEQ/L (3.7-5.4); SAMPLE HEMOLYSIS CHECK 0; SAMPLE ICTERIC CHECK 0; SAMPLE LIPEMIA CHECK 0; SODIUM 136 MEQ/L (136-147)
[2016-12-03 06:40] LABS: GLUCOSE 109 mg/dL (70-99); UREA NITROGEN (BUN) 22 mg/dL (9-23)
[2016-12-03 07:07] VITALS: BP 151/83
[2016-12-03 10:54] LABS: POINT-OF-CARE METER ID UU14208750
[2016-12-03 11:09] VITALS: BP 127/60
[2016-12-03 15:58] LABS: POINT-OF-CARE METER ID UU14162508
[2016-12-03 16:52] VITALS: BP 140/67
[2016-12-03 19:16] VITALS: BP 147/77
[2016-12-03 21:48] LABS: POINT-OF-CARE METER ID UU14208750
[2016-12-03 23:39] VITALS: BP 143/68
[2016-12-04 03:28] VITALS: BP 150/78
[2016-12-04 06:41] LABS: POINT-OF-CARE METER ID UU14208750
[2016-12-04 06:43] LABS: ANION GAP 7 MEQ/L (2-14); CHLORIDE 102 MEQ/L (99-109); GFR ESTIMATE (CALCULATED) > 59 mL/min/; POTASSIUM 4.6 MEQ/L (3.7-5.4); SAMPLE HEMOLYSIS CHECK 0; SAMPLE ICTERIC CHECK 0; SAMPLE LIPEMIA CHECK 0; SODIUM 132 MEQ/L (136-147); UREA NITROGEN (BUN) 24 mg/dL (9-23)
[2016-12-04 06:46] LABS: GLUCOSE 199 mg/dL (70-99)
[2016-12-04 07:42] VITALS: BP 171/93
[2016-12-04 11:15] VITALS: BP 112/53
[2016-12-04 11:26] LABS: POINT-OF-CARE METER ID UU14208750
[2016-12-04 16:20] VITALS: BP 145/70
[2016-12-04 16:34] LABS: POINT-OF-CARE METER ID UU14208750
[2016-12-04 19:15] VITALS: BP 158/72
[2016-12-04 22:00] LABS: POINT-OF-CARE METER ID UU14162508
[2016-12-04 23:36] VITALS: BP 167/77
[2016-12-05 03:51] VITALS: BP 154/73
[2016-12-05 06:23] LABS: POINT-OF-CARE METER ID UU14162508
[2016-12-05 07:49] LABS: ANION GAP 9 MEQ/L (2-14); CHLORIDE 103 MEQ/L (99-109); GFR ESTIMATE (CALCULATED) > 59 mL/min/; GLUCOSE 188 mg/dL (70-99); POTASSIUM 4.7 MEQ/L (3.7-5.4); SAMPLE HEMOLYSIS CHECK 0; SAMPLE ICTERIC CHECK 0; SAMPLE LIPEMIA CHECK 0; SODIUM 134 MEQ/L (136-147); UREA NITROGEN (BUN) 22 mg/dL (9-23)
[2016-12-05 08:30] VITALS: BP 159/70
[2016-12-05 11:53] LABS: POINT-OF-CARE METER ID UU14162508
[2016-12-05 12:10] VITALS: BP 142/78
[2016-12-05] MEDS ORDERED: Zeasorb Antifungal T TP (12:14)
[2016-12-05] MEDS ORDERED: LEVEMIR100 UNIT/2 SC (12:14)
[2016-12-05] MEDS ORDERED: ZOLPIDEM TARTRAT5 MG PO (12:14)
[2016-12-05] MEDS ORDERED: LISINOPRIL40 MG PO (12:14)
[2016-12-05] MEDS ORDERED: SPIRONOLACTONE25 MG PO (12:14)
== END 2016-12-05 14:05 | disposition home or self-care (01) | DRG 638 ==
LOC: EME 12:28 → 4WEST 13:30 → EDOF 13:30 → 2EASTP 13:30 → ENRESERV 13:33 → 4WEST 15:11 → ENRESERV 12-01 15:24 → CANRESERV 12-01 15:43 → ENRESERV 12-01 16:03 → 2EASTP 12-01 16:32
PROVIDERS: Emergency Medicine; Family Medicine; Internal Medicine; Internal Medicine Critical Care Medicine; Nurse Practitioner Family
DX: E13.10 Other specified diabetes mellitus with ketoacidosis without coma (principal); I50.30 Unspecified diastolic (congestive) heart failure; I47.2 Ventricular tachycardia; F33.9 Major depressive disorder, recurrent, unspecified; E87.1 Hypo-osmolality and hyponatremia; E66.01 Morbid (severe) obesity due to excess calories; Z68.38 Body mass index [BMI] 38.0-38.9, adult; Z79.4 Long term (current) use of insulin; Z79.84 Long term (current) use of oral hypoglycemic drugs; Z91.14 Patient's other noncompliance with medication regimen; J44.9 Chronic obstructive pulmonary disease, unspecified; I25.10 Atherosclerotic heart disease of native coronary artery without angina pectoris; I11.0 Hypertensive heart disease with heart failure; G47.33 Obstructive sleep apnea (adult) (pediatric); F41.9 Anxiety disorder, unspecified; I25.5 Ischemic cardiomyopathy; Z95.5 Presence of coronary angioplasty implant and graft; Z95.1 Presence of aortocoronary bypass graft; Z91.19 Patient's noncompliance with other medical treatment and regimen; I25.2 Old myocardial infarction; F17.210 Nicotine dependence, cigarettes, uncomplicated; E78.5 Hyperlipidemia, unspecified; D50.9 Iron deficiency anemia, unspecified; B35.9 Dermatophytosis, unspecified; Z87.11 Personal history of peptic ulcer disease; B37.2 Candidiasis of skin and nail; R09.02 Hypoxemia; Z82.49 Family history of ischemic heart disease and other diseases of the circulatory system; Z86.73 Personal history of transient ischemic attack (TIA), and cerebral infarction without residual deficits
CPT/HCPCS: 71020; 80047; 80048; 80048 91; 80076; 81003; 82272; 82803; 82948; 83690; 83735; 84100; 84132 91; 84484; 85025; 87641; 93005; 93306; 94640; 94640 76; 94799; 99281; 99285; J1650; J1815; J1940; J7030; J7050

== ENCOUNTER 2016-12-18 13:06 | Inpatient (IN) | payer OTHER ==
[~2016-12-18] VITALS: Ht 165.1 cm; Wt 107.7 kg
[~2016-12-18 13:06] MED LIST changes: +FUROSEMIDE40 MG PO; +LISINOPRIL40 MG PO; +SYMBICORT60 INHALAT IH; +ZOLPIDEM TARTRAT5 MG PO
[2016-12-18 13:30] LABS: POINT-OF-CARE METER ID UU13113702
[2016-12-18 13:36] LABS: CARBON DIOXIDE (BICARBONATE) 16.2 MEQ/L (20-31)
[2016-12-18 13:38] LABS: CREATININE 1.1 mg/dL (0.6-1.3); POTASSIUM 4.8 mEq/L (3.7-5.4)
[2016-12-18 13:44] LABS: HEMATOCRIT 45.1 % (38.0-50.0); MCHC 30.8 G/DL (30.0-36.0); MCV 77.8 FL (86-99); PLATELET COUNT 357 K/uL (156-360); RBC DIS.WIDTH-CV 17.9 % (11.8-14.6); RBC DIS.WIDTH-SD 48.4 % (39-53); WHITE BLOOD COUNT 17.4 K/uL (4.1-10.2)
[2016-12-18 13:47] LABS: CHLORIDE 108 mEq/L (99-109); POTASSIUM 4.8 mEq/L (3.7-5.4); SODIUM 135 mEq/L (136-147)
[2016-12-18 13:48] LABS: ADD MIUA? YES; BILIRUBIN NEGATIVE; BLOOD MODERATE; COLOR YELLOW ((YELLOW)); GLUCOSE (STRIP) >=500; KETONES 5; LEUKOCYTES NEGATIVE; NITRITE NEGATIVE; PROTEIN (STRIP) >=500; UROBILINOGEN 0.2 MG/DL (0.2-1.0)
[2016-12-18 13:50] LABS: ANION GAP 13 MEQ/L (2-14)
[2016-12-18 13:53] LABS: GFR ESTIMATE (CALCULATED) 55 mL/min/
[2016-12-18 13:54] LABS: UREA NITROGEN (BUN) 26 mg/dL (9-23)
[2016-12-18 13:56] LABS: CREATINE KINASE 168 IU/L (1-294); LIPASE 6 U/L (1.0-51.0)
[2016-12-18 13:59] LABS: TROP-I INTERPRETATION NEGATIVE; TROPONIN-I 0.15 ng/mL (0.0-0.30)
[2016-12-18 14:06] LABS: BACTERIA NONE SEEN /HPF; EPITHELIAL CELLS RARE /HPF; MUCUS TRACE /LPF; UCUL ADDED? NO; WHITE BLOOD CELLS 0-5 /HPF (0-5)
[2016-12-18 14:20] LABS: GLUCOSE 414 mg/dL (70-99)
[2016-12-18 15:33] LABS: SALICYLATE < 5.0 MG/DL (15-30)
[2016-12-18 15:37] LABS: SAMPLE HEMOLYSIS CHECK 0; SAMPLE ICTERIC CHECK 0; SAMPLE LIPEMIA CHECK 0
[2016-12-18 15:50] LABS: BASE EXCESS -7.5 mEq/L (-3 to +3); BICARBONATE 15.7 mEq/L (22-26); CARBOXY HGB 2.5 % (0-5); COMMENTS - BLOOD GASES A+C+; DEVICE NC; METHEMOGLOBIN 1.1 % (0-1.5); O2 FLOW 2 L/MIN; PCO2 26 mm Hg (35-45); PO2 62 mm Hg (80-100); SITE RR; pH 7.39 (7.35-7.45)
[2016-12-18 17:28] LABS: BICARBONATE 18.4 mEq/L (22-26); CARBOXY HGB 2.5 % (0-5); METHEMOGLOBIN 1.2 % (0-1.5)
[2016-12-18 17:30] LABS: PCO2 40 mm Hg (35-45); PO2 76 mm Hg (80-100); pH 7.27 (7.35-7.45)
[2016-12-18 17:31] LABS: COMMENTS - BLOOD GASES A+C+; DEVICE 840 PB; FI02 50 %; MECHANICAL RATE 16 resp/min; MODE AC; PEEP 5 CM/H20; SITE LR; TIDAL VOLUME 600 ML; TOTAL RESP RATE 16 resp/min
[2016-12-18 18:32] LABS: POINT-OF-CARE METER ID UU13113702
[2016-12-18 19:37] LABS: Estimated Average Glucose 292 mg/dL (70-123); HEMOGLOBIN A1c (GLYCOHEMOGLOB) 11.8 % HGB (Below 5.7)
[2016-12-18 19:47] LABS: CHLORIDE 110 mEq/L (99-109); POTASSIUM 4.6 mEq/L (3.7-5.4); SODIUM 135 mEq/L (136-147)
[2016-12-18 19:49] LABS: GLUCOSE 353 mg/dL (70-99)
[2016-12-18 19:50] LABS: ANION GAP 12 MEQ/L (2-14)
[2016-12-18 19:53] LABS: GFR ESTIMATE (CALCULATED) > 59 mL/min/; UREA NITROGEN (BUN) 25 mg/dL (9-23)
[2016-12-18 20:00] VITALS: BP 170/77
[2016-12-18 20:12] VITALS: BP 167/76
[2016-12-18 20:30] VITALS: BP 143/70
[2016-12-18 21:00] VITALS: BP 135/68
[2016-12-18 21:26] LABS: METH RESISTANT S AUREUS PCR NEGATIVE (NEGATIVE)
[2016-12-18 21:29] LABS: PROBE CHECK PASS; SPECIMEN PROCESSING CONTROL PASS
[2016-12-18 21:31] LABS: BASE EXCESS -5.1 mEq/L (-3 to +3); BICARBONATE 18.2 mEq/L (22-26); CARBOXY HGB 1.8 % (0-5); METHEMOGLOBIN 1.4 % (0-1.5)
[2016-12-18 21:32] LABS: COMMENTS - BLOOD GASES A+C+; DEVICE VENT; FI02 40 %; MECHANICAL RATE 20 resp/min; MODE A/C; PCO2 28 mm Hg (35-45); PO2 150 mm Hg (80-100); SITE LR; TOTAL RESP RATE 21 resp/min; pH 7.42 (7.35-7.45)
[2016-12-18 21:33] LABS: PEEP 8 CM/H20; TIDAL VOLUME 600 ML
[2016-12-18 21:49] LABS: INFLUENZA A VIRAL ANTIGEN NEGATIVE; INFLUENZA B VIRAL ANTIGEN NEGATIVE
[2016-12-18 22:00] VITALS: BP 149/75
[2016-12-18 22:37] LABS: POINT-OF-CARE METER ID UU14174217
[2016-12-18 23:00] VITALS: BP 129/67
[2016-12-18 23:05] LABS: MAGNESIUM 1.5 mg/dL (1.3-2.7)
[2016-12-18 23:15] LABS: POINT-OF-CARE METER ID UU14174217
[2016-12-19] VITALS (23 sets, daily range): BP systolic 109–181; BP diastolic 61–133
[2016-12-19 00:16] LABS: POINT-OF-CARE METER ID UU14174217
[2016-12-19 00:52] LABS: CHLORIDE 112 mEq/L (99-109); POTASSIUM 4.3 mEq/L (3.7-5.4); SODIUM 137 mEq/L (136-147)
[2016-12-19 00:54] LABS: GLUCOSE 291 mg/dL (70-99)
[2016-12-19 00:55] LABS: ANION GAP 11 MEQ/L (2-14)
[2016-12-19 00:58] LABS: GFR ESTIMATE (CALCULATED) > 59 mL/min/
[2016-12-19 00:59] LABS: UREA NITROGEN (BUN) 25 mg/dL (9-23)
[2016-12-19 01:44] LABS: POINT-OF-CARE METER ID UU14174217; POINT-OF-CARE USER ID 609231305
[2016-12-19 03:06] LABS: POINT-OF-CARE METER ID UU14174217
[2016-12-19 03:50] LABS: POINT-OF-CARE METER ID UU14174217
[2016-12-19 04:53] LABS: POINT-OF-CARE METER ID UU14174217
[2016-12-19 05:43] LABS: BASE EXCESS -5.1 mEq/L (-3 to +3); BICARBONATE 18.2 mEq/L (22-26); CARBOXY HGB 1.8 % (0-5); COMMENTS - BLOOD GASES A+C+; DEVICE VENT; FI02 40 %; MECHANICAL RATE 20 resp/min; METHEMOGLOBIN 1.1 % (0-1.5); MODE AC VC; PCO2 28 mm Hg (35-45); PO2 168 mm Hg (80-100); SITE LR; pH 7.42 (7.35-7.45)
[2016-12-19 05:44] LABS: PEEP 8 CM/H20; TIDAL VOLUME 600 ML; TOTAL RESP RATE 32 resp/min
[2016-12-19 05:55] LABS: ANION GAP 8 MEQ/L (2-14); CHLORIDE 113 MEQ/L (99-109); GFR ESTIMATE (CALCULATED) > 59 mL/min/; POTASSIUM 4.1 MEQ/L (3.7-5.4); SAMPLE HEMOLYSIS CHECK 0; SAMPLE ICTERIC CHECK 0; SAMPLE LIPEMIA CHECK 0; SODIUM 140 MEQ/L (136-147); UREA NITROGEN (BUN) 25 mg/dL (9-23)
[2016-12-19 05:56] LABS: HDL CHOLESTEROL 21 MG/DL (Desirable>=40); LDL CHOLESTEROL 71 mg/dL (Desirable<100); NON-HDL CHOLESTEROL 92 mg/dL (Desirable<160); TOTAL CHOLESTEROL 113 mg/dL (Desirable<200); TRIGLYCERIDES 105 MG/DL (Normal: <150)
[2016-12-19 06:06] LABS: GLUCOSE 128 mg/dL (70-99)
[2016-12-19 06:11] LABS: POINT-OF-CARE METER ID UU14174217
[2016-12-19 07:12] LABS: POINT-OF-CARE METER ID UU14174217
[2016-12-19 08:42] LABS: POINT-OF-CARE METER ID UU14174217
[2016-12-19 09:56] LABS: ANION GAP 11 MEQ/L (2-14); CHLORIDE 112 MEQ/L (99-109); GFR ESTIMATE (CALCULATED) > 59 mL/min/; GLUCOSE 160 mg/dL (70-99); POTASSIUM 4.1 MEQ/L (3.7-5.4); SAMPLE HEMOLYSIS CHECK 0; SAMPLE ICTERIC CHECK 0; SAMPLE LIPEMIA CHECK 0; SODIUM 140 MEQ/L (136-147); UREA NITROGEN (BUN) 24 mg/dL (9-23)
[2016-12-19 10:38] LABS: POINT-OF-CARE METER ID UU14174217
[2016-12-19 11:29] LABS: ANION GAP 7 MEQ/L (2-14); CHLORIDE 113 MEQ/L (99-109); GFR ESTIMATE (CALCULATED) > 59 mL/min/; GLUCOSE 159 mg/dL (70-99); MAGNESIUM 1.7 mg/dl (1.3-2.7); POTASSIUM 3.9 MEQ/L (3.7-5.4); SAMPLE HEMOLYSIS CHECK 0; SAMPLE ICTERIC CHECK 0; SAMPLE LIPEMIA CHECK 0; SODIUM 139 MEQ/L (136-147); UREA NITROGEN (BUN) 24 mg/dL (9-23)
[2016-12-19 12:58] LABS: POINT-OF-CARE METER ID UU14174217
[2016-12-19 13:18] LABS: ANION GAP 8 MEQ/L (2-14); CHLORIDE 113 MEQ/L (99-109); GFR ESTIMATE (CALCULATED) > 59 mL/min/; GLUCOSE 157 mg/dL (70-99); SAMPLE HEMOLYSIS CHECK 0; SAMPLE ICTERIC CHECK 0; SAMPLE LIPEMIA CHECK 0; SODIUM 139 MEQ/L (136-147); UREA NITROGEN (BUN) 24 mg/dL (9-23)
[2016-12-19 14:46] LABS: POINT-OF-CARE METER ID UU14174217
[2016-12-19 17:12] LABS: POINT-OF-CARE METER ID UU14208751
[2016-12-19 18:27] LABS: POINT-OF-CARE METER ID UU14208751
[2016-12-19 21:06] LABS: ANION GAP 8 MEQ/L (2-14); CHLORIDE 113 MEQ/L (99-109); GFR ESTIMATE (CALCULATED) > 59 mL/min/; GLUCOSE 184 mg/dL (70-99); POTASSIUM 3.9 MEQ/L (3.7-5.4); SAMPLE HEMOLYSIS CHECK 0; SAMPLE ICTERIC CHECK 0; SAMPLE LIPEMIA CHECK 0; SODIUM 137 MEQ/L (136-147); UREA NITROGEN (BUN) 23 mg/dL (9-23)
[2016-12-20] VITALS (23 sets, daily range): BP systolic 142–187; BP diastolic 67–94
[2016-12-20 05:26] LABS: BASE EXCESS -7.3 mEq/L (-3 to +3); BICARBONATE 16.1 mEq/L (22-26); CARBOXY HGB 1.8 % (0-5); METHEMOGLOBIN 1.5 % (0-1.5); PCO2 26 mm Hg (35-45)
[2016-12-20 05:27] LABS: DEVICE 840; FI02 30 %; MECHANICAL RATE 20 resp/min; MODE AC; PEEP 6 CM/H20; PO2 124 mm Hg (80-100); SITE RR; TIDAL VOLUME 600 ML; TOTAL RESP RATE 20 resp/min
[2016-12-20 07:24] LABS: POINT-OF-CARE METER ID UU14174217
[2016-12-20 08:26] LABS: ALKALINE PHOSPHATASE 61 IU/L (3-129); ANION GAP 10 MEQ/L (2-14); BASOPHIL COUNT 0.1 K/uL (0-0.1); CHLORIDE 113 MEQ/L (99-109); EOSINOPHIL (%) 1.1 % (0-5); EOSINOPHIL COUNT 0.2 K/uL (0-0.3); GFR ESTIMATE (CALCULATED) > 59 mL/min/; GLUCOSE 188 mg/dL (70-99); HEMATOCRIT 36.1 % (38.0-50.0); IMMATURE GRANULOCYTE (%) 0.7 % (0.0-0.7); IMMATURE GRANULOCYTE COUNT 0.1 K/uL; INSTRUMENT ABS NEUTROPHIL CT 10.2 K/uL; LYMPHOCYTE COUNT 1.5 K/uL (1.0-2.8); MAGNESIUM 1.9 mg/dl (1.3-2.7); MCH 23.8 PG (29.0-34.0); MCHC 30.2 G/DL (30.0-36.0); MCV 78.8 FL (86-99); MONOCYTE (%) 8.9 % (3-12); MONOCYTE COUNT 1.2 K/uL (0-0.8); NEUTROPHIL (%) 77.5 % (45-76); NEUTROPHIL COUNT 10.2 K/uL (1.8-6.4); POTASSIUM 4.1 MEQ/L (3.7-5.4); RBC DIS.WIDTH-CV 17.5 % (11.8-14.6); RBC DIS.WIDTH-SD 50.1 % (39-53); SAMPLE HEMOLYSIS CHECK 0; SAMPLE ICTERIC CHECK 0; SAMPLE LIPEMIA CHECK 0; SODIUM 138 MEQ/L (136-147); TOTAL BILIRUBIN 0.7 MG/DL (0.0-1.0); UREA NITROGEN (BUN) 22 mg/dL (9-23); WHITE BLOOD COUNT 13.2 K/uL (4.1-10.2)
[2016-12-20 08:36] LABS: MEAN PLAT.VOLUME 9.2 uM^3 (9.0-12.4)
[2016-12-20 08:41] LABS: PLATELET COUNT 235 K/uL (156-360); RED BLOOD COUNT 4.58 M/uL (4.00-5.50)
[2016-12-20 12:07] LABS: POINT-OF-CARE METER ID UU14174217
[2016-12-20 17:03] LABS: POINT-OF-CARE METER ID UU14174217
[2016-12-20 22:33] LABS: POINT-OF-CARE METER ID UU13113731
[2016-12-21] VITALS (25 sets, daily range): BP systolic 144–191; BP diastolic 70–91
[2016-12-21 05:50] LABS: POINT-OF-CARE METER ID UU14208751
[2016-12-21 11:19] LABS: POINT-OF-CARE METER ID UU13113731
[2016-12-21 13:43] LABS: UR CREATININE CONCENTRATION 159.9 MG/DL
[2016-12-21 13:59] LABS: ANION GAP 11 MEQ/L (2-14); CHLORIDE 113 MEQ/L (99-109); GFR ESTIMATE (CALCULATED) > 59 mL/min/; GLUCOSE 239 mg/dL (70-99); POTASSIUM 4.5 MEQ/L (3.7-5.4); SAMPLE HEMOLYSIS CHECK 0; SAMPLE ICTERIC CHECK 0; SAMPLE LIPEMIA CHECK 0; SODIUM 137 MEQ/L (136-147); UREA NITROGEN (BUN) 20 mg/dL (9-23)
[2016-12-21 17:19] LABS: POINT-OF-CARE METER ID UU13113731
[2016-12-22] VITALS (20 sets, daily range): BP systolic 143–172; BP diastolic 61–109
[2016-12-22 00:46] LABS: POINT-OF-CARE METER ID UU13113731; POINT-OF-CARE USER ID PHATLC
[2016-12-22 05:33] LABS: POINT-OF-CARE METER ID UU14162636; POINT-OF-CARE USER ID PHATLC
[2016-12-22 06:45] LABS: HEMATOCRIT 33.7 % (38.0-50.0); MCH 24.7 PG (29.0-34.0); MCHC 31.2 G/DL (30.0-36.0); MCV 79.3 FL (86-99); MEAN PLAT.VOLUME 9.5 uM^3 (9.0-12.4); PLATELET COUNT 223 K/uL (156-360); RBC DIS.WIDTH-SD 51.3 % (39-53); RED BLOOD COUNT 4.25 M/uL (4.00-5.50)
[2016-12-22 07:09] LABS: ANION GAP 9 MEQ/L (2-14); CHLORIDE 109 MEQ/L (99-109); POTASSIUM 3.7 MEQ/L (3.7-5.4); SAMPLE HEMOLYSIS CHECK 0; SAMPLE ICTERIC CHECK 0; SAMPLE LIPEMIA CHECK 0; SODIUM 137 MEQ/L (136-147)
[2016-12-22 07:10] LABS: GFR ESTIMATE (CALCULATED) > 59 mL/min/; GLUCOSE 226 mg/dL (70-99); UREA NITROGEN (BUN) 17 mg/dL (9-23)
[2016-12-22 10:28] LABS: MAGNESIUM 1.7 mg/dl (1.3-2.7)
[2016-12-22 13:06] LABS: POINT-OF-CARE METER ID UU14162636
[2016-12-22 18:14] LABS: POINT-OF-CARE METER ID UU14162636
[2016-12-22 20:40] LABS: BASE EXCESS -4.2 mEq/L (-3 to +3); BICARBONATE 19.6 mEq/L (22-26); CARBOXY HGB 2.1 % (0-5); COMMENTS - BLOOD GASES C+A+; DEVICE VENT; FI02 30 %; METHEMOGLOBIN 1.2 % (0-1.5); MODE SPONT; PCO2 31 mm Hg (35-45); PEEP 5 CM/H20; PO2 89 mm Hg (80-100); PRES. SUPPORT 10 CM/H2O; SITE RR; TOTAL RESP RATE 19 resp/min; pH 7.41 (7.35-7.45)
[2016-12-22 21:56] LABS: ALKALINE PHOSPHATASE 69 IU/L (3-129); ANION GAP 9 MEQ/L (2-14); CHLORIDE 112 MEQ/L (99-109); GFR ESTIMATE (CALCULATED) > 59 mL/min/; GLUCOSE 214 mg/dL (70-99); MAGNESIUM 1.7 mg/dl (1.3-2.7); POTASSIUM 3.6 MEQ/L (3.7-5.4); SAMPLE HEMOLYSIS CHECK 0; SAMPLE ICTERIC CHECK 0; SAMPLE LIPEMIA CHECK 0; SODIUM 139 MEQ/L (136-147); TOTAL BILIRUBIN 0.5 MG/DL (0.0-1.0); UREA NITROGEN (BUN) 16 mg/dL (9-23)
[2016-12-22 23:27] LABS: POINT-OF-CARE METER ID UU14162636; POINT-OF-CARE USER ID PHATLC
[2016-12-23] VITALS (18 sets, daily range): BP systolic 124–194; BP diastolic 56–104
[2016-12-23 05:34] LABS: CHLORIDE 112 mEq/L (99-109); HEMATOCRIT 36.9 % (38.0-50.0); MCH 24.2 PG (29.0-34.0); MCHC 30.9 G/DL (30.0-36.0); MCV 78.3 FL (86-99); MEAN PLAT.VOLUME 9.6 uM^3 (9.0-12.4); PLATELET COUNT 240 K/uL (156-360); POTASSIUM 3.8 mEq/L (3.7-5.4); RBC DIS.WIDTH-CV 17.9 % (11.8-14.6); RBC DIS.WIDTH-SD 49.8 % (39-53); RED BLOOD COUNT 4.71 M/uL (4.00-5.50); SODIUM 139 mEq/L (136-147); WHITE BLOOD COUNT 11.9 K/uL (4.1-10.2)
[2016-12-23 05:36] LABS: GLUCOSE 224 mg/dL (70-99)
[2016-12-23 05:37] LABS: ANION GAP 8 MEQ/L (2-14)
[2016-12-23 05:39] LABS: GFR ESTIMATE (CALCULATED) > 59 mL/min/
[2016-12-23 05:40] LABS: UREA NITROGEN (BUN) 17 mg/dL (9-23)
[2016-12-23 06:40] LABS: POINT-OF-CARE METER ID UU14174217; POINT-OF-CARE USER ID PHATLC
[2016-12-23 07:58] LABS: MAGNESIUM 1.7 mg/dl (1.3-2.7); SAMPLE HEMOLYSIS CHECK 0; SAMPLE ICTERIC CHECK 0; SAMPLE LIPEMIA CHECK 0
[2016-12-23 12:37] LABS: POINT-OF-CARE METER ID UU13113748
[2016-12-23 17:44] LABS: POINT-OF-CARE METER ID UU14174217
[2016-12-23 21:52] LABS: POINT-OF-CARE METER ID UU14174217; POINT-OF-CARE USER ID PHATLC
[2016-12-23 23:24] LABS: POINT-OF-CARE METER ID UU14174217; POINT-OF-CARE USER ID PHATLC
[2016-12-24] VITALS (24 sets, daily range): BP systolic 125–176; BP diastolic 64–87
[2016-12-24 04:17] LABS: HEMATOCRIT 37.4 % (38.0-50.0); MCH 24.4 PG (29.0-34.0); MCV 78.6 FL (86-99); MEAN PLAT.VOLUME 9.5 uM^3 (9.0-12.4); PLATELET COUNT 254 K/uL (156-360); RBC DIS.WIDTH-SD 51.4 % (39-53); RED BLOOD COUNT 4.76 M/uL (4.00-5.50)
[2016-12-24 04:25] LABS: CHLORIDE 112 mEq/L (99-109); POTASSIUM 3.6 mEq/L (3.7-5.4); SODIUM 140 mEq/L (136-147)
[2016-12-24 04:26] LABS: GLUCOSE 263 mg/dL (70-99)
[2016-12-24 04:28] LABS: ANION GAP 7 MEQ/L (2-14)
[2016-12-24 04:30] LABS: GFR ESTIMATE (CALCULATED) > 59 mL/min/
[2016-12-24 04:31] LABS: UREA NITROGEN (BUN) 17 mg/dL (9-23)
[2016-12-24 06:49] LABS: POINT-OF-CARE METER ID UU14174217; POINT-OF-CARE USER ID PHATLC
[2016-12-24 13:50] LABS: POINT-OF-CARE METER ID UU14174217
[2016-12-24 18:46] LABS: POINT-OF-CARE METER ID UU13113748
[2016-12-25] VITALS (16 sets, daily range): BP systolic 87–197; BP diastolic 71–92
[2016-12-25 05:12] LABS: CHLORIDE 110 mEq/L (99-109); POTASSIUM 3.9 mEq/L (3.7-5.4); SODIUM 143 mEq/L (136-147)
[2016-12-25 05:14] LABS: GLUCOSE 177 mg/dL (70-99)
[2016-12-25 05:14] LABS: POINT-OF-CARE METER ID UU13113748
[2016-12-25 05:15] LABS: ANION GAP 11 MEQ/L (2-14)
[2016-12-25 05:16] LABS: TOTAL BILIRUBIN 0.4 mg/dL (0.0-1.0)
[2016-12-25 05:18] LABS: ALKALINE PHOSPHATASE 80 IU/L (3-129); GFR ESTIMATE (CALCULATED) > 59 mL/min/
[2016-12-25 05:19] LABS: UREA NITROGEN (BUN) 15 mg/dL (9-23)
[2016-12-25 06:15] LABS: HEMATOCRIT 39.9 % (38.0-50.0); MCH 23.5 PG (29.0-34.0); MCHC 30.1 G/DL (30.0-36.0); MCV 78.2 FL (86-99); MEAN PLAT.VOLUME 9.3 uM^3 (9.0-12.4); PLATELET COUNT 296 K/uL (156-360); RBC DIS.WIDTH-CV 17.9 % (11.8-14.6); RBC DIS.WIDTH-SD 50.4 % (39-53); WHITE BLOOD COUNT 12.7 K/uL (4.1-10.2)
[2016-12-25 13:08] LABS: POINT-OF-CARE METER ID UU13113748
[2016-12-25 16:11] LABS: POINT-OF-CARE METER ID UU14107333; POINT-OF-CARE USER ID OPEBLP59
[2016-12-25 19:00] LABS: POINT-OF-CARE METER ID UU13113748
[2016-12-26] VITALS (7 sets, daily range): BP systolic 160–187; BP diastolic 69–93
[2016-12-26 01:57] LABS: POINT-OF-CARE METER ID UU13113803
[2016-12-26 04:43] LABS: EOSINOPHIL (%) 1.3 % (0-5); HEMATOCRIT 41.6 % (38.0-50.0); MCH 23.6 PG (29.0-34.0); MCHC 30.3 G/DL (30.0-36.0); MEAN PLAT.VOLUME 9.2 uM^3 (9.0-12.4); MONOCYTE (%) 7.5 % (3-12); NEUTROPHIL (%) 81.7 % (45-76); PLATELET COUNT 323 K/uL (156-360); RBC DIS.WIDTH-CV 17.8 % (11.8-14.6); RBC DIS.WIDTH-SD 49.6 % (39-53); RED BLOOD COUNT 5.33 M/uL (4.00-5.50); WHITE BLOOD COUNT 12.8 K/uL (4.1-10.2)
[2016-12-26 04:44] LABS: BASOPHIL COUNT 0.1 K/uL (0-0.1); EOSINOPHIL COUNT 0.2 K/uL (0-0.3); IMMATURE GRANULOCYTE COUNT 0.1 K/uL; INSTRUMENT ABS NEUTROPHIL CT 10.5 K/uL; NEUTROPHIL COUNT 10.5 K/uL (1.8-6.4)
[2016-12-26 04:52] LABS: CHLORIDE 107 mEq/L (99-109); SODIUM 142 mEq/L (136-147)
[2016-12-26 04:53] LABS: GLUCOSE 170 mg/dL (70-99)
[2016-12-26 04:55] LABS: ANION GAP 15 MEQ/L (2-14)
[2016-12-26 04:57] LABS: GFR ESTIMATE (CALCULATED) > 59 mL/min/
[2016-12-26 04:58] LABS: UREA NITROGEN (BUN) 20 mg/dL (9-23)
[2016-12-26 11:26] LABS: POINT-OF-CARE METER ID UU13113731; POINT-OF-CARE USER ID 612031313
[2016-12-26 17:24] LABS: POINT-OF-CARE METER ID UU13113731; POINT-OF-CARE USER ID 612031313
[2016-12-27] VITALS (9 sets, daily range): BP systolic 135–182; BP diastolic 59–99
[2016-12-27 00:54] LABS: POINT-OF-CARE METER ID UU13113803
[2016-12-27 04:46] LABS: BASOPHIL COUNT 0.1 K/uL (0-0.1); EOSINOPHIL (%) 0.9 % (0-5); EOSINOPHIL COUNT 0.1 K/uL (0-0.3); HEMATOCRIT 38.7 % (38.0-50.0); IMMATURE GRANULOCYTE (%) 0.7 % (0.0-0.7); IMMATURE GRANULOCYTE COUNT 0.1 K/uL; INSTRUMENT ABS NEUTROPHIL CT 10.2 K/uL; MCH 23.6 PG (29.0-34.0); MCHC 30.2 G/DL (30.0-36.0); MCV 78.2 FL (86-99); MEAN PLAT.VOLUME 9.4 uM^3 (9.0-12.4); MONOCYTE (%) 8.9 % (3-12); MONOCYTE COUNT 1.1 K/uL (0-0.8); NEUTROPHIL (%) 80.9 % (45-76); NEUTROPHIL COUNT 10.2 K/uL (1.8-6.4); PLATELET COUNT 309 K/uL (156-360); RBC DIS.WIDTH-CV 17.7 % (11.8-14.6); RBC DIS.WIDTH-SD 50.3 % (39-53); RED BLOOD COUNT 4.95 M/uL (4.00-5.50); WHITE BLOOD COUNT 12.6 K/uL (4.1-10.2)
[2016-12-27 04:57] LABS: CHLORIDE 109 mEq/L (99-109); POTASSIUM 3.9 mEq/L (3.7-5.4); SODIUM 142 mEq/L (136-147)
[2016-12-27 04:59] LABS: GLUCOSE 237 mg/dL (70-99)
[2016-12-27 05:00] LABS: ANION GAP 12 MEQ/L (2-14)
[2016-12-27 05:03] LABS: GFR ESTIMATE (CALCULATED) > 59 mL/min/
[2016-12-27 05:04] LABS: UREA NITROGEN (BUN) 22 mg/dL (9-23)
[2016-12-27 05:38] LABS: POINT-OF-CARE METER ID UU14208751
[2016-12-27 12:30] LABS: POINT-OF-CARE METER ID UU14208751; POINT-OF-CARE USER ID 612031313
[2016-12-27 17:27] LABS: POINT-OF-CARE METER ID UU14208751; POINT-OF-CARE USER ID 612031313
[2016-12-27 20:56] LABS: POINT-OF-CARE METER ID UU14314083
[2016-12-28] VITALS: BP 153/74
[2016-12-28 04:00] VITALS: BP 122/72
[2016-12-28 05:43] LABS: POINT-OF-CARE METER ID UU14208751
[2016-12-28 05:47] LABS: EOSINOPHIL (%) 0 % (0-5); HEMATOCRIT 43.2 % (38.0-50.0); IMMATURE GRANULOCYTE (%) 0.8 % (0.0-0.7); IMMATURE GRANULOCYTE COUNT 0.1 K/uL; INSTRUMENT ABS NEUTROPHIL CT 9.2 K/uL; LYMPHOCYTE COUNT 0.4 K/uL (1.0-2.8); MCH 23.6 PG (29.0-34.0); MCHC 30.1 G/DL (30.0-36.0); MCV 78.4 FL (86-99); MEAN PLAT.VOLUME 9.3 uM^3 (9.0-12.4); MONOCYTE (%) 1.2 % (3-12); MONOCYTE COUNT 0.1 K/uL (0-0.8); NEUTROPHIL COUNT 9.2 K/uL (1.8-6.4); PLATELET COUNT 374 K/uL (156-360); RBC DIS.WIDTH-SD 50.7 % (39-53); RED BLOOD COUNT 5.51 M/uL (4.00-5.50); WHITE BLOOD COUNT 9.8 K/uL (4.1-10.2)
[2016-12-28 06:17] LABS: ANION GAP 11 MEQ/L (2-14); CHLORIDE 108 MEQ/L (99-109); GFR ESTIMATE (CALCULATED) > 59 mL/min/; POTASSIUM 4.4 MEQ/L (3.7-5.4); SAMPLE HEMOLYSIS CHECK 0; SAMPLE ICTERIC CHECK 0; SAMPLE LIPEMIA CHECK 0; SODIUM 143 MEQ/L (136-147); UREA NITROGEN (BUN) 31 mg/dL (9-23)
[2016-12-28 06:19] LABS: GLUCOSE 382 mg/dL (70-99)
[2016-12-28 08:00] VITALS: BP 160/75
[2016-12-28 11:50] LABS: POINT-OF-CARE METER ID UU14208751; POINT-OF-CARE USER ID 612031313
[2016-12-28 12:00] VITALS: BP 168/124
[2016-12-28 16:00] VITALS: BP 151/70
[2016-12-28 17:36] LABS: POINT-OF-CARE METER ID UU14208751; POINT-OF-CARE USER ID 612031313
[2016-12-28 20:00] VITALS: BP 145/81
[2016-12-29] VITALS (15 sets, daily range): BP systolic 0–177; BP diastolic 0–93
[2016-12-29 00:50] LABS: POINT-OF-CARE METER ID UU14208751
[2016-12-29 05:30] LABS: POINT-OF-CARE METER ID UU14314082
[2016-12-29 06:17] LABS: EOSINOPHIL (%) 0 % (0-5); HEMATOCRIT 41.9 % (38.0-50.0); IMMATURE GRANULOCYTE (%) 0.8 % (0.0-0.7); IMMATURE GRANULOCYTE COUNT 0.1 K/uL; LYMPHOCYTE COUNT 0.4 K/uL (1.0-2.8); MCH 23.8 PG (29.0-34.0); MCHC 29.6 G/DL (30.0-36.0); MCV 80.4 FL (86-99); MONOCYTE (%) 3.3 % (3-12); MONOCYTE COUNT 0.5 K/uL (0-0.8); NEUTROPHIL (%) 92.7 % (45-76); RBC DIS.WIDTH-CV 18.6 % (11.8-14.6); RBC DIS.WIDTH-SD 52.2 % (39-53); RED BLOOD COUNT 5.21 M/uL (4.00-5.50)
[2016-12-29 07:12] LABS: ANION GAP 6 MEQ/L (2-14); CHLORIDE 111 MEQ/L (99-109); GFR ESTIMATE (CALCULATED) > 59 mL/min/; GLUCOSE 382 mg/dL (70-99); SAMPLE HEMOLYSIS CHECK 2; SAMPLE ICTERIC CHECK 0; SAMPLE LIPEMIA CHECK 0; SODIUM 145 MEQ/L (136-147); UREA NITROGEN (BUN) 40 mg/dL (9-23)
[2016-12-29 07:14] LABS: POTASSIUM ND MEQ/L (3.7-5.4)
[2016-12-29 07:14] LABS: PLAT.SUFFICIENCY ADEQUATE; PLATELET CLUMPS PRESENT - PLATELET COUNT APPEARS ADQ.; PLATELET COUNT UNABLE TO REPORT K/uL (156-360)
[2016-12-29 07:51] LABS: POTASSIUM 4.6 MEQ/L (3.7-5.4)
[2016-12-29 10:30] LABS: POINT-OF-CARE METER ID UU14314083
[2016-12-29 12:45] LABS: POINT-OF-CARE METER ID UU14208751
[2016-12-29 16:02] LABS: BASE EXCESS 5.5 mEq/L (-3 to +3); CARBOXY HGB 2.4 % (0-5); METHEMOGLOBIN 1.3 % (0-1.5); PO2 74 mm Hg (80-100)
[2016-12-29 16:03] LABS: BICARBONATE 28.9 mEq/L (22-26); COMMENTS - BLOOD GASES A+C+; DEVICE NC; O2 FLOW 2 L/MIN; PCO2 37 mm Hg (35-45); SITE RR; TOTAL RESP RATE 28 resp/min
[2016-12-29 17:22] LABS: BASE EXCESS 6.1 mEq/L (-3 to +3); BICARBONATE 29.6 mEq/L (22-26); CARBOXY HGB 1.8 % (0-5); METHEMOGLOBIN 1.4 % (0-1.5); PCO2 38 mm Hg (35-45)
[2016-12-29 17:23] LABS: COMMENTS - BLOOD GASES A+C+; DEVICE VENTILATOR; MECHANICAL RATE 18 resp/min; MODE AC-18; PEEP 5 CM/H20; PO2 151 mm Hg (80-100); SITE RR; TIDAL VOLUME 550 ML; TOTAL RESP RATE 18 resp/min
[2016-12-29 18:23] LABS: POINT-OF-CARE METER ID UU14208751
[2016-12-30] VITALS (20 sets, daily range): BP systolic 0–182; BP diastolic 0–75
[2016-12-30 05:16] LABS: EOSINOPHIL (%) 0 % (0-5); HEMATOCRIT 38.3 % (38.0-50.0); IMMATURE GRANULOCYTE (%) 0.7 % (0.0-0.7); IMMATURE GRANULOCYTE COUNT 0.1 K/uL; INSTRUMENT ABS NEUTROPHIL CT 8.2 K/uL; LYMPHOCYTE COUNT 0.4 K/uL (1.0-2.8); MCH 24.9 PG (29.0-34.0); MCHC 30.8 G/DL (30.0-36.0); MEAN PLAT.VOLUME 9.8 uM^3 (9.0-12.4); MONOCYTE (%) 3.1 % (3-12); MONOCYTE COUNT 0.3 K/uL (0-0.8); NEUTROPHIL (%) 92.1 % (45-76); NEUTROPHIL COUNT 8.2 K/uL (1.8-6.4); PLATELET COUNT 326 K/uL (156-360); RBC DIS.WIDTH-CV 18.4 % (11.8-14.6); RBC DIS.WIDTH-SD 52.8 % (39-53); RED BLOOD COUNT 4.73 M/uL (4.00-5.50); WHITE BLOOD COUNT 8.9 K/uL (4.1-10.2)
[2016-12-30 05:45] LABS: ANION GAP 8 MEQ/L (2-14); CHLORIDE 110 MEQ/L (99-109); GFR ESTIMATE (CALCULATED) > 59 mL/min/; GLUCOSE 468 mg/dL (70-99); POTASSIUM 4.5 MEQ/L (3.7-5.4); SAMPLE HEMOLYSIS CHECK 0; SAMPLE ICTERIC CHECK 0; SAMPLE LIPEMIA CHECK 0; SODIUM 145 MEQ/L (136-147); UREA NITROGEN (BUN) 50 mg/dL (9-23)
[2016-12-30 09:16] LABS: POINT-OF-CARE METER ID UU14174217
[2016-12-30 09:45] LABS: POINT-OF-CARE METER ID UU14314083
[2016-12-30 12:44] LABS: POINT-OF-CARE METER ID UU14314083
[2016-12-30 17:40] LABS: POINT-OF-CARE METER ID UU14314083
[2016-12-31] VITALS (13 sets, daily range): BP systolic 0–178; BP diastolic 0–78
[2016-12-31 00:36] LABS: POINT-OF-CARE METER ID UU14314083
[2016-12-31 05:45] LABS: POINT-OF-CARE METER ID UU14314083
[2016-12-31 12:49] LABS: POINT-OF-CARE METER ID UU14314083
[2016-12-31 17:44] LABS: POINT-OF-CARE METER ID UU14314083
[2016-12-31 23:54] LABS: POINT-OF-CARE METER ID UU14314083
[2017-01-01] VITALS (12 sets, daily range): BP systolic 136–179; BP diastolic 54–80
[2017-01-01 06:01] LABS: POINT-OF-CARE METER ID UU14208751; POINT-OF-CARE USER ID PHATLC
[2017-01-01 11:35] LABS: POINT-OF-CARE METER ID UU13113803; POINT-OF-CARE USER ID 612031313
[2017-01-01 17:26] LABS: POINT-OF-CARE METER ID UU13113803; POINT-OF-CARE USER ID 612031313
[2017-01-02] VITALS (9 sets, daily range): BP systolic 142–181; BP diastolic 64–94
[2017-01-02 00:47] LABS: POINT-OF-CARE METER ID UU14208751
[2017-01-02 06:08] LABS: POINT-OF-CARE METER ID UU14162636
[2017-01-02 12:51] LABS: POINT-OF-CARE METER ID UU14208751; POINT-OF-CARE USER ID 612031313
[2017-01-02 23:34] LABS: POINT-OF-CARE METER ID UU14188625
[2017-01-03 04:26] VITALS: BP 161/82
[2017-01-03 05:46] LABS: EOSINOPHIL (%) 0 % (0-5); HEMATOCRIT 47.8 % (38.0-50.0); IMMATURE GRANULOCYTE (%) 1.5 % (0.0-0.7); IMMATURE GRANULOCYTE COUNT 0.4 K/uL; LYMPHOCYTE COUNT 1.1 K/uL (1.0-2.8); MCH 24.7 PG (29.0-34.0); MCHC 31.2 G/DL (30.0-36.0); MCV 79.3 FL (86-99); MEAN PLAT.VOLUME 10.4 uM^3 (9.0-12.4); MONOCYTE (%) 6.7 % (3-12); MONOCYTE COUNT 1.6 K/uL (0-0.8); NEUTROPHIL (%) 87.2 % (45-76); PLATELET COUNT 309 K/uL (156-360); RBC DIS.WIDTH-CV 19.2 % (11.8-14.6); RBC DIS.WIDTH-SD 51.9 % (39-53); WHITE BLOOD COUNT 24.1 K/uL (4.1-10.2)
[2017-01-03 05:48] LABS: RED BLOOD COUNT 6.03 M/uL (4.00-5.50)
[2017-01-03 06:11] LABS: ANION GAP 10 MEQ/L (2-14); CHLORIDE 112 MEQ/L (99-109); GFR ESTIMATE (CALCULATED) > 59 mL/min/; GLUCOSE 223 mg/dL (70-99); POTASSIUM 4.5 MEQ/L (3.7-5.4); SAMPLE HEMOLYSIS CHECK 0; SAMPLE ICTERIC CHECK 0; SAMPLE LIPEMIA CHECK 0; SODIUM 147 MEQ/L (136-147); UREA NITROGEN (BUN) 47 mg/dL (9-23)
[2017-01-03 06:17] LABS: POINT-OF-CARE METER ID UU13113717
[2017-01-03 08:14] VITALS: BP 148/74
[2017-01-03 11:29] VITALS: BP 169/71
[2017-01-03 12:09] LABS: POINT-OF-CARE METER ID UU14188625
[2017-01-03 15:25] VITALS: BP 130/62
[2017-01-03 15:26] LABS: POINT-OF-CARE METER ID UU14188625
[2017-01-03 19:24] VITALS: BP 144/67
[2017-01-03 23:45] LABS: POINT-OF-CARE METER ID UU14188625
[2017-01-03 23:49] VITALS: BP 172/78
[2017-01-04 03:29] VITALS: BP 127/57
[2017-01-04 05:31] LABS: POINT-OF-CARE METER ID UU13113717
[2017-01-04 07:07] LABS: EOSINOPHIL (%) 0.8 % (0-5); EOSINOPHIL COUNT 0.2 K/uL (0-0.3); HEMATOCRIT 44.7 % (38.0-50.0); IMMATURE GRANULOCYTE (%) 1.3 % (0.0-0.7); IMMATURE GRANULOCYTE COUNT 0.3 K/uL; INSTRUMENT ABS NEUTROPHIL CT 18.1 K/uL; LYMPHOCYTE COUNT 1.2 K/uL (1.0-2.8); MCHC 31.3 G/DL (30.0-36.0); MCV 79.7 FL (86-99); MEAN PLAT.VOLUME 10.8 uM^3 (9.0-12.4); MONOCYTE COUNT 1.7 K/uL (0-0.8); NEUTROPHIL (%) 84.3 % (45-76); NEUTROPHIL COUNT 18.1 K/uL (1.8-6.4); PLATELET COUNT 253 K/uL (156-360); RBC DIS.WIDTH-SD 52.4 % (39-53); RED BLOOD COUNT 5.61 M/uL (4.00-5.50); WHITE BLOOD COUNT 21.5 K/uL (4.1-10.2)
[2017-01-04 07:32] LABS: ANION GAP 7 MEQ/L (2-14); CHLORIDE 113 MEQ/L (99-109); GFR ESTIMATE (CALCULATED) > 59 mL/min/; GLUCOSE 191 mg/dL (70-99); POTASSIUM 4.2 MEQ/L (3.7-5.4); SAMPLE HEMOLYSIS CHECK 0; SAMPLE ICTERIC CHECK 0; SAMPLE LIPEMIA CHECK 0; SODIUM 146 MEQ/L (136-147); UREA NITROGEN (BUN) 49 mg/dL (9-23)
[2017-01-04 07:52] VITALS: BP 110/46
[2017-01-04 11:12] VITALS: BP 162/70
[2017-01-04 13:16] LABS: POINT-OF-CARE METER ID UU13113717
[2017-01-04 17:28] LABS: POINT-OF-CARE METER ID UU13113717
[2017-01-04 17:45] VITALS: BP 154/70
[2017-01-04 19:44] VITALS: BP 153/71
[2017-01-05 03:59] VITALS: BP 151/77
[2017-01-05 06:33] LABS: POINT-OF-CARE METER ID UU14188625
[2017-01-05 06:46] LABS: EOSINOPHIL COUNT 0.2 K/uL (0-0.3); HEMATOCRIT 44.7 % (38.0-50.0); IMMATURE GRANULOCYTE (%) 1.7 % (0.0-0.7); IMMATURE GRANULOCYTE COUNT 0.4 K/uL; INSTRUMENT ABS NEUTROPHIL CT 18.4 K/uL; LYMPHOCYTE COUNT 1.2 K/uL (1.0-2.8); MCH 24.4 PG (29.0-34.0); MCHC 30.4 G/DL (30.0-36.0); MCV 80.3 FL (86-99); MEAN PLAT.VOLUME 11.3 uM^3 (9.0-12.4); MONOCYTE COUNT 1.5 K/uL (0-0.8); NEUTROPHIL (%) 84.7 % (45-76); NEUTROPHIL COUNT 18.4 K/uL (1.8-6.4); PLATELET COUNT 267 K/uL (156-360); RBC DIS.WIDTH-CV 19.1 % (11.8-14.6); RED BLOOD COUNT 5.57 M/uL (4.00-5.50); WHITE BLOOD COUNT 21.7 K/uL (4.1-10.2)
[2017-01-05 07:10] LABS: ANION GAP 8 MEQ/L (2-14); CHLORIDE 114 MEQ/L (99-109); GFR ESTIMATE (CALCULATED) > 59 mL/min/; GLUCOSE 277 mg/dL (70-99); POTASSIUM 4.3 MEQ/L (3.7-5.4); SAMPLE HEMOLYSIS CHECK 0; SAMPLE ICTERIC CHECK 0; SAMPLE LIPEMIA CHECK 0; SODIUM 147 MEQ/L (136-147); UREA NITROGEN (BUN) 46 mg/dL (9-23)
[2017-01-05 07:16] VITALS: BP 161/76
[2017-01-05 11:42] VITALS: BP 150/69
[2017-01-05 12:53] LABS: POINT-OF-CARE METER ID UU14188625
[2017-01-05 16:00] VITALS: BP 177/77
[2017-01-05 20:00] VITALS: BP 168/75
[2017-01-05 23:18] LABS: POINT-OF-CARE METER ID UU13113717
[2017-01-06] VITALS: BP 163/74
[2017-01-06 00:55] LABS: POINT-OF-CARE METER ID UU13113717
[2017-01-06 03:52] VITALS: BP 183/84
[2017-01-06 04:02] VITALS: BP 139/67
[2017-01-06 06:22] LABS: EOSINOPHIL (%) 1.2 % (0-5); EOSINOPHIL COUNT 0.3 K/uL (0-0.3); HEMATOCRIT 43.6 % (38.0-50.0); IMMATURE GRANULOCYTE (%) 1.3 % (0.0-0.7); IMMATURE GRANULOCYTE COUNT 0.3 K/uL; INSTRUMENT ABS NEUTROPHIL CT 19.1 K/uL; LYMPHOCYTE COUNT 1.2 K/uL (1.0-2.8); MCH 23.9 PG (29.0-34.0); MCV 79.7 FL (86-99); MEAN PLAT.VOLUME 11.1 uM^3 (9.0-12.4); MONOCYTE COUNT 1.3 K/uL (0-0.8); NEUTROPHIL (%) 86.1 % (45-76); NEUTROPHIL COUNT 19.1 K/uL (1.8-6.4); PLATELET COUNT 262 K/uL (156-360); RBC DIS.WIDTH-CV 18.6 % (11.8-14.6); RBC DIS.WIDTH-SD 51.4 % (39-53); RED BLOOD COUNT 5.47 M/uL (4.00-5.50); WHITE BLOOD COUNT 22.2 K/uL (4.1-10.2)
[2017-01-06 06:45] LABS: ANION GAP 9 MEQ/L (2-14); CHLORIDE 114 MEQ/L (99-109); GFR ESTIMATE (CALCULATED) > 59 mL/min/; GLUCOSE 233 mg/dL (70-99); POTASSIUM 4.3 MEQ/L (3.7-5.4); SAMPLE HEMOLYSIS CHECK 0; SAMPLE ICTERIC CHECK 0; SAMPLE LIPEMIA CHECK 0; SODIUM 145 MEQ/L (136-147); UREA NITROGEN (BUN) 41 mg/dL (9-23)
[2017-01-06 08:17] VITALS: BP 160/86
[2017-01-06 11:32] VITALS: BP 162/86
[2017-01-06 12:04] LABS: POINT-OF-CARE METER ID UU14188625
[2017-01-06] MEDS ORDERED: HEPARIN SO5000 UNIT4 SC (12:29)
[2017-01-06] MEDS ORDERED: DUONEB 2.5-0.5 M3 ML AEROSOL (12:29)
[2017-01-06] MEDS ORDERED: CORDARONE200 MG GT (12:29)
[2017-01-06] MEDS ORDERED: CARVEDILOL12.5 MG GT (12:29)
[2017-01-06] MEDS ORDERED: ATORVASTATIN CA40 MG GT (12:29)
[2017-01-06] MEDS ORDERED: LISINOPRIL40 MG GT (12:30)
[2017-01-06] MEDS ORDERED: ASPIRIN81 M2 GT (12:30)
[2017-01-06] MEDS ORDERED: CHLORHEXIDINE473 ML MM (12:30)
[2017-01-06] MEDS ORDERED: QUETIAPINE FUMA25 MG PO (12:30)
[2017-01-06] MEDS ORDERED: SPIRONOLACTONE25 MG GT (12:30)
[2017-01-06] MEDS ORDERED: Tylenol GT (12:30)
[2017-01-06] MEDS ORDERED: NATURAL BALANCE15 M1 BOTH EYES ×2 (12:31)
[2017-01-06] MEDS ORDERED: BISAC-EVAC10 MG PR (12:31)
[2017-01-06] MEDS ORDERED: DOCU LIQUI50 MG/5 ML GT (12:31)
[2017-01-06] MEDS ORDERED: FAMOTIDINE20 MG GT (12:31)
[2017-01-06] MEDS ORDERED: GLUCAGEN1 MG/1 ML IM (12:32)
[2017-01-06] MEDS ORDERED: LEVEMIR100 UNIT/2 SC (12:32)
[2017-01-06] MEDS ORDERED: Zeasorb Antifungal T TP (12:32)
[2017-01-06] MEDS ORDERED: NOVOLOG PE100 UNITS/ SC (12:32)
[2017-01-06] MEDS ORDERED: PREDNISONE10 MG PO (12:34)
[2017-01-06 15:25] VITALS: BP 129/62
== END 2017-01-06 16:04 | DRG 4 ==
LOC: EME 13:06 → 4WEST 17:08 → EDOF 17:08 → CANRESERV 17:09 → ENRESERV 17:09 → 4WEST 19:43 → ENRESERV 01-02 07:00 → CANRESERV 01-02 07:00 → 4WEST 01-02 08:29 → ENRESERV 01-02 11:17 → 5SOUTH 01-02 13:54
PROVIDERS: Emergency Medicine; Family Medicine; Internal Medicine; Internal Medicine Critical Care Medicine; Obstetrics & Gynecology; Specialist
PROC: 0BH17EZ Insertion of Endotracheal Airway into Trachea, Via Natural or Artificial Opening (ICD-10-PCS; principal; 2016-12-29)
PROC: 0B113F4 Bypass Trachea to Cutaneous with Tracheostomy Device, Percutaneous Approach (ICD-10-PCS; 2016-12-29)
PROC: 0DH63UZ Insertion of Feeding Device into Stomach, Percutaneous Approach (ICD-10-PCS; 2016-12-29)
PROC: 5A1955Z Respiratory Ventilation, Greater than 96 Consecutive Hours (ICD-10-PCS; 2016-12-29)
DX: A41.9 Sepsis, unspecified organism (principal); J96.01 Acute respiratory failure with hypoxia; E11.10 Type 2 diabetes mellitus with ketoacidosis without coma; J69.0 Pneumonitis due to inhalation of food and vomit; R65.20 Severe sepsis without septic shock; I66.01 Occlusion and stenosis of right middle cerebral artery; G93.89 Other specified disorders of brain; R13.10 Dysphagia, unspecified; I50.22 Chronic systolic (congestive) heart failure; I11.0 Hypertensive heart disease with heart failure; J44.1 Chronic obstructive pulmonary disease with (acute) exacerbation; I47.2 Ventricular tachycardia; E11.51 Type 2 diabetes mellitus with diabetic peripheral angiopathy without gangrene; E11.42 Type 2 diabetes mellitus with diabetic polyneuropathy; I25.5 Ischemic cardiomyopathy; F41.9 Anxiety disorder, unspecified; I63.9 Cerebral infarction, unspecified; G47.33 Obstructive sleep apnea (adult) (pediatric); I25.10 Atherosclerotic heart disease of native coronary artery without angina pectoris; E78.5 Hyperlipidemia, unspecified; F17.210 Nicotine dependence, cigarettes, uncomplicated; I48.91 Unspecified atrial fibrillation; R47.02 Dysphasia; R32 Unspecified urinary incontinence; G81.94 Hemiplegia, unspecified affecting left nondominant side; N17.0 Acute kidney failure with tubular necrosis; E66.9 Obesity, unspecified; R29.715 NIHSS score 15; E05.90 Thyrotoxicosis, unspecified without thyrotoxic crisis or storm; F32.9 Major depressive disorder, single episode, unspecified; Z79.4 Long term (current) use of insulin; Z79.82 Long term (current) use of aspirin; I69.320 Aphasia following cerebral infarction; Z82.5 Family history of asthma and other chronic lower respiratory diseases; Z79.899 Other long term (current) drug therapy; Z68.39 Body mass index [BMI] 39.0-39.9, adult; Z95.5 Presence of coronary angioplasty implant and graft; I25.2 Old myocardial infarction; I69.328 Other speech and language deficits following cerebral infarction; Z89.421 Acquired absence of other right toe(s); Z82.49 Family history of ischemic heart disease and other diseases of the circulatory system; Z95.1 Presence of aortocoronary bypass graft; Z83.3 Family history of diabetes mellitus; Z82.3 Family history of stroke; Z78.1 Physical restraint status; Z91.14 Patient's other noncompliance with medication regimen; F05 Delirium due to known physiological condition
CPT/HCPCS: 31720; 36600; 70450; 70496; 70498; 71010; 80047; 80048; 80048 91; 80053; 80061; 80202; 81003; 82010; 82550; 82570; 82803; 82948; 83036; 83605; 83690; 83735; 84100; 84300; 84439; 84443; 84484; 84999; 85014; 85018; 85025; 85027; 87040; 87070; 87077; 87186; 87205; 87502; 87641; 90686; 92610 GN; 93306; 94002; 94003; 94640; 94640 76; 94660; 94667; 94668; 94760; 94799; 97530 GO; 97530 GP; 99202; 99281; 99285; G0480; J0360; J0456; J0696; J1644; J1815; J1940; J1956; J2250; J2405; J2543; J2704; J2920; J2930; J3010; J3370; J3475; J3480; J7030; J7050; J7120; J7512; S0028

== ENCOUNTER 2017-02-25 10:42 | Inpatient (IN) | payer OTHER ==
[~2017-02-25] VITALS: Ht 175.3 cm; Wt 99.6 kg
[~2017-02-25 10:42] MED LIST changes: +ASPIRIN81 M2 GT; +ATORVASTATIN CA40 MG GT; +BISAC-EVAC10 MG PR; +CARVEDILOL12.5 MG GT; +CHLORHEXIDINE473 ML MM; +CORDARONE200 MG GT; +DOCU LIQUI50 MG/5 ML GT; +DUONEB 2.5-0.5 M3 ML AEROSOL; +FAMOTIDINE20 MG GT; +GLUCAGEN1 MG/1 ML IM; +HEPARIN SO5000 UNIT4 SC; +LISINOPRIL40 MG GT; +NATURAL BALANCE15 M1 BOTH EYES; +PREDNISONE10 MG PO; +QUETIAPINE FUMA25 MG PO; +SPIRONOLACTONE25 MG GT; +Tylenol GT
[2017-02-25 11:35] LABS: BASE EXCESS 11.9 mEq/L (-3 to +3); CARBOXY HGB 2.2 % (0-5); PCO2 37 mm Hg (35-45)
[2017-02-25 11:36] LABS: BICARBONATE 34.7 mEq/L (22-26); COMMENTS - BLOOD GASES A+C+; CONTINUOUS POS AIRWAY PRESSURE 5 cm H2O; DEVICE VENT; FI02 70 %; MODE SPONT; PEEP 5 CM/H20; PO2 190 mm Hg (80-100); PRES. SUPPORT 10 CM/H2O; SITE RR; TOTAL RESP RATE 30 resp/min; pH 7.58 (7.35-7.45)
[2017-02-25 12:13] LABS: HEMATOCRIT 39.9 % (38.0-50.0); MCH 26.3 PG (29.0-34.0); MCHC 30.3 G/DL (30.0-36.0); MCV 86.7 FL (86-99); MEAN PLAT.VOLUME 9.3 uM^3 (9.0-12.4); NRBC (%) 0.2 /100 WBC (0-0); PLATELET COUNT 591 K/uL (156-360); RBC DIS.WIDTH-CV 22.6 % (11.8-14.6); RBC DIS.WIDTH-SD 70.9 % (39-53); WHITE BLOOD COUNT 28.8 K/uL (4.1-10.2)
[2017-02-25 12:14] LABS: BASOPHIL COUNT 0.1 K/uL (0-0.1); EOSINOPHIL (%) 0 % (0-5); IMMATURE GRANULOCYTE (%) 1.7 % (0.0-0.7); IMMATURE GRANULOCYTE COUNT 0.5 K/uL; INSTRUMENT ABS NEUTROPHIL CT 24.5 K/uL; LYMPHOCYTE COUNT 1.3 K/uL (1.0-2.8); MONOCYTE (%) 8.5 % (3-12); MONOCYTE COUNT 2.5 K/uL (0-0.8); NEUTROPHIL COUNT 24.5 K/uL (1.8-6.4)
[2017-02-25 12:22] LABS: CHLORIDE 103 mEq/L (99-109); POTASSIUM 4.3 mEq/L (3.7-5.4); SODIUM 145 mEq/L (136-147)
[2017-02-25 12:24] LABS: GLUCOSE 174 mg/dL (70-99)
[2017-02-25 12:24] LABS: ADD MIUA? YES; BILIRUBIN NEGATIVE; BLOOD SMALL; COLOR YELLOW ((YELLOW)); GLUCOSE (STRIP) NEGATIVE; KETONES NEGATIVE; LEUKOCYTES LARGE; NITRITE NEGATIVE; PROTEIN (STRIP) 100; SPECIFIC GRAVITY 1.019 (1.000-1.030)
[2017-02-25 12:25] LABS: ANION GAP 13 MEQ/L (2-14)
[2017-02-25 12:26] LABS: TOTAL BILIRUBIN 0.6 mg/dL (0.0-1.0)
[2017-02-25 12:27] LABS: ALKALINE PHOSPHATASE 110 IU/L (3-129)
[2017-02-25 12:28] LABS: GFR ESTIMATE (CALCULATED) > 59 mL/min/
[2017-02-25 12:29] LABS: UREA NITROGEN (BUN) 64 mg/dL (9-23)
[2017-02-25 12:33] LABS: TROP-I INTERPRETATION INDETERMINATE; TROPONIN-I 0.43 ng/mL (0.0-0.30)
[2017-02-25 12:48] LABS: BACTERIA 1+ /HPF; CASTS NONE SEEN /LPF; CRYSTALS NONE SEEN; EPITHELIAL CELLS NONE SEEN /HPF; MUCUS NONE SEEN /LPF; UCUL ADDED? YES; WHITE BLOOD CELLS TNTC /HPF (0-5)
[2017-02-25 13:22] LABS: INTER. NORMALIZED RATIO 2.4; PROTHROMBIN TIME 27.7 SEC (10.2-12.9)
[2017-02-25] MEDS ORDERED: AMIODARONE HCL200 MG PO (14:34)
[2017-02-25] MEDS ORDERED: AMIODARONE HCL200 MG GT (14:35)
[2017-02-25] MEDS ORDERED: LO-DOSE ASPIRIN81 M1 GT (14:38)
[2017-02-25] MEDS ORDERED: DIFLUCAN200 MG PO (14:39)
[2017-02-25] MEDS ORDERED: PROTONIX40 M1 GT (14:40)
[2017-02-25] MEDS ORDERED: DELTASONE20 M1 GT (14:41)
[2017-02-25] MEDS ORDERED: ALDACTONE25 MG GT (14:42)
[2017-02-25] MEDS ORDERED: ELIQUIS5 MG GT (14:43)
[2017-02-25] MEDS ORDERED: K-PHOS NEUTRAL250 M1 GT (14:43)
[2017-02-25] MEDS ORDERED: BUMEX1 MG GT (14:45)
[2017-02-25] MEDS ORDERED: ARTIFICIAL TEAR15 M1 BOTH EYES (14:45)
[2017-02-25] MEDS ORDERED: CARVEDILOL3.125 MG GT (14:46)
[2017-02-25] MEDS ORDERED: FAMOTIDINE20 MG GT (14:47)
[2017-02-25] MEDS ORDERED: ISOSORBIDE DINI10 MG PO (14:48)
[2017-02-25] MEDS ORDERED: LEVEMIR FL100 UNIT/1 SC (14:49)
[2017-02-25] MEDS ORDERED: NYSTATIN60 GM TP (14:50)
[2017-02-25] MEDS ORDERED: PULMICORT0.5 MG/21 IH (14:51)
[2017-02-25] MEDS ORDERED: NOVOLOG PE100 UNITS/ SC (14:52)
[2017-02-25] MEDS ORDERED: DUONEB 2.5-0.5 M3 ML AEROSOL (14:53)
[2017-02-25] MEDS ORDERED: CATHFLO ACT2 MG/2 ML IV (14:54)
[2017-02-25] MEDS ORDERED: GLUCAGEN1 M1 IM (14:55)
[2017-02-25] MEDS ORDERED: DULCOLAX10 MG PR (14:55)
[2017-02-25] MEDS ORDERED: GLUCOSE GEL38 GM PO (14:57)
[2017-02-25] MEDS ORDERED: COUGH SYRU100 MG/5 M GT (15:04)
[2017-02-25] MEDS ORDERED: MIRALAX17 GM GT (15:05)
[2017-02-25] MEDS ORDERED: MILK OF MAGN GT (15:05)
[2017-02-25] MEDS ORDERED: PERIDEX473 ML MM (15:12)
[2017-02-25 22:34] LABS: TROP-I INTERPRETATION POSITIVE
[2017-02-25 22:36] LABS: TROPONIN-I 0.62 ng/mL (0.0-0.30)
[2017-02-26] VITALS (8 sets, daily range): BP systolic 74–128; BP diastolic 40–64
[2017-02-26 04:31] LABS: METH RESISTANT S AUREUS PCR NEGATIVE (NEGATIVE)
[2017-02-26 04:36] LABS: PROBE CHECK PASS; SPECIMEN PROCESSING CONTROL PASS
[2017-02-26 05:28] LABS: MEAN PLAT.VOLUME 9.2 uM^3 (9.0-12.4); PLATELET COUNT 523 K/uL (156-360)
[2017-02-26 05:36] LABS: HEMATOCRIT 37.1 % (38.0-50.0); MCH 25.8 PG (29.0-34.0); MCHC 29.4 G/DL (30.0-36.0); MCV 87.9 FL (86-99); NRBC (%) 0.1 /100 WBC (0-0); RBC DIS.WIDTH-CV 22.6 % (11.8-14.6); RBC DIS.WIDTH-SD 71.8 % (39-53); RED BLOOD COUNT 4.22 M/uL (4.00-5.50)
[2017-02-26 05:40] LABS: HDL CHOLESTEROL 15 MG/DL (Desirable>=40); LDL CHOLESTEROL 56 mg/dL (Desirable<100); NON-HDL CHOLESTEROL 85 mg/dL (Desirable<160); TOTAL CHOLESTEROL 100 mg/dL (Desirable<200); TRIGLYCERIDES 143 MG/DL (Normal: <150)
[2017-02-26 05:46] LABS: TROP-I INTERPRETATION POSITIVE; TROPONIN-I 0.67 ng/mL (0.0-0.30)
[2017-02-26 07:04] LABS: Estimated Average Glucose 154 mg/dL (70-123)
[2017-02-26 08:22] LABS: POINT-OF-CARE METER ID UU13113698
[2017-02-26 11:43] LABS: BASE EXCESS 9.6 mEq/L (-3 to +3); BICARBONATE 33.5 mEq/L (22-26); CARBOXY HGB 2.4 % (0-5); METHEMOGLOBIN 1.7 % (0-1.5); PCO2 42 mm Hg (35-45); PO2 76 mm Hg (80-100); pH 7.51 (7.35-7.45)
[2017-02-26 11:44] LABS: DEVICE NRBM; FI02 100 %; O2 FLOW 15 L/MIN; SITE RR; TOTAL RESP RATE 16 resp/min
[2017-02-26 11:52] LABS: POINT-OF-CARE METER ID UU13113698
[2017-02-26 12:13] LABS: MEAN PLAT.VOLUME 9.4 uM^3 (9.0-12.4); PLATELET COUNT 500 K/uL (156-360)
[2017-02-26 12:18] LABS: HEMATOCRIT 33.3 % (38.0-50.0); MCH 25.9 PG (29.0-34.0); MCHC 29.4 G/DL (30.0-36.0); MCV 88.1 FL (86-99); NRBC (%) 0.2 /100 WBC (0-0); RBC DIS.WIDTH-CV 22.6 % (11.8-14.6); RBC DIS.WIDTH-SD 72.4 % (39-53); RED BLOOD COUNT 3.78 M/uL (4.00-5.50)
[2017-02-26 12:28] LABS: ANION GAP 9 MEQ/L (2-14); CHLORIDE 108 MEQ/L (99-109); SAMPLE HEMOLYSIS CHECK 0; SAMPLE ICTERIC CHECK 0; SAMPLE LIPEMIA CHECK 0; SODIUM 150 MEQ/L (136-147); TOTAL BILIRUBIN 0.7 MG/DL (0.0-1.0)
[2017-02-26 12:31] LABS: POTASSIUM 3.2 MEQ/L (3.7-5.4)
[2017-02-26 12:33] LABS: ALKALINE PHOSPHATASE 76 IU/L (3-129); GFR ESTIMATE (CALCULATED) 55 mL/min/; GLUCOSE 227 mg/dL (70-99); UREA NITROGEN (BUN) 75 mg/dL (9-23)
[2017-02-26 12:39] LABS: TROP-I INTERPRETATION POSITIVE; TROPONIN-I 0.79 ng/mL (0.0-0.30)
[2017-02-26 13:06] LABS: ADD MIUA? YES; BILIRUBIN NEGATIVE; BLOOD NEGATIVE; COLOR YELLOW ((YELLOW)); GLUCOSE (STRIP) NEGATIVE; KETONES NEGATIVE; LEUKOCYTES LARGE; NITRITE NEGATIVE; PROTEIN (STRIP) 30; SPECIFIC GRAVITY 1.019 (1.000-1.030); UROBILINOGEN 0.2 MG/DL (0.2-1.0)
[2017-02-26 13:14] LABS: BACTERIA NONE SEEN /HPF; BUDDING YEAST 2+; EPITHELIAL CELLS NONE SEEN /HPF; HYALINE CASTS 15-20 /LPF; MUCUS TRACE /LPF; RED BLOOD CELLS NONE SEEN /HPF (0-5); UCUL ADDED? YES; WHITE BLOOD CELLS TNTC /HPF (0-5)
[2017-02-26 20:59] LABS: POINT-OF-CARE METER ID UU14174216
[2017-02-27 03:15] VITALS: BP 127/60
[2017-02-27 07:14] LABS: ANION GAP 7 MEQ/L (2-14); CHLORIDE 114 MEQ/L (99-109); GFR ESTIMATE (CALCULATED) > 59 mL/min/; GLUCOSE 125 mg/dL (70-99); SAMPLE HEMOLYSIS CHECK 0; SAMPLE ICTERIC CHECK 0; SAMPLE LIPEMIA CHECK 0; SODIUM 150 MEQ/L (136-147); UREA NITROGEN (BUN) 75 mg/dL (9-23)
[2017-02-27 07:29] VITALS: BP 102/50
[2017-02-27 08:12] LABS: POINT-OF-CARE METER ID UU13113781; POINT-OF-CARE USER ID ENVKC36
[2017-02-27 11:36] VITALS: BP 111/56
[2017-02-27 12:29] LABS: POINT-OF-CARE METER ID UU14314088; POINT-OF-CARE USER ID ENVKC36
[2017-02-27 16:39] VITALS: BP 139/66
[2017-02-27 17:24] LABS: POINT-OF-CARE METER ID UU13113781; POINT-OF-CARE USER ID ENVKC36
[2017-02-27 17:24] LABS: POINT-OF-CARE METER ID UU14314088
[2017-02-27 20:00] VITALS: BP 118/57
[2017-02-27 23:17] LABS: POINT-OF-CARE METER ID UU14314088; POINT-OF-CARE USER ID ENVMNS
[2017-02-27 23:55] VITALS: BP 104/50
[2017-02-28 04:00] VITALS: BP 127/58
[2017-02-28 06:04] LABS: POINT-OF-CARE METER ID UU14314088; POINT-OF-CARE USER ID ENVMNS
[2017-02-28 07:06] VITALS: BP 105/51
[2017-02-28 07:59] LABS: POINT-OF-CARE METER ID UU14314088
[2017-02-28 13:06] LABS: POINT-OF-CARE METER ID UU14314088
[2017-02-28 13:27] VITALS: BP 123/60
[2017-02-28 15:37] VITALS: BP 109/56
[2017-02-28 19:42] LABS: POINT-OF-CARE METER ID UU14314088
[2017-02-28 20:00] VITALS: BP 120/56
[2017-02-28 22:35] LABS: POINT-OF-CARE METER ID UU14314088; POINT-OF-CARE USER ID ENVKC36
[2017-02-28 23:45] VITALS: BP 125/60
[2017-03-01 00:55] LABS: POINT-OF-CARE METER ID UU13113717
[2017-03-01 04:16] VITALS: BP 127/61
[2017-03-01 07:12] LABS: POINT-OF-CARE METER ID UU13113717
[2017-03-01 08:00] VITALS: BP 153/66
[2017-03-01 12:00] VITALS: BP 134/68
[2017-03-01 12:45] LABS: POINT-OF-CARE METER ID UU14174225
[2017-03-01 15:57] LABS: EOSINOPHIL (%) 0.5 % (0-5); EOSINOPHIL COUNT 0.1 K/uL (0-0.3); IMMATURE GRANULOCYTE (%) 1.5 % (0.0-0.7); IMMATURE GRANULOCYTE COUNT 0.3 K/uL; INSTRUMENT ABS NEUTROPHIL CT 20.6 K/uL; LYMPHOCYTE COUNT 0.7 K/uL (1.0-2.8); MCH 26.1 PG (29.0-34.0); MCHC 29.3 G/DL (30.0-36.0); MCV 89.1 FL (86-99); MEAN PLAT.VOLUME 9.3 uM^3 (9.0-12.4); MONOCYTE (%) 3.7 % (3-12); MONOCYTE COUNT 0.8 K/uL (0-0.8); NEUTROPHIL COUNT 20.6 K/uL (1.8-6.4); PLATELET COUNT 351 K/uL (156-360); RBC DIS.WIDTH-CV 22.4 % (11.8-14.6); RBC DIS.WIDTH-SD 73.9 % (39-53); RED BLOOD COUNT 3.03 M/uL (4.00-5.50); WHITE BLOOD COUNT 22.7 K/uL (4.1-10.2)
[2017-03-01 16:13] VITALS: BP 139/65
[2017-03-01 16:24] LABS: ANION GAP 3 MEQ/L (2-14); CHLORIDE 114 MEQ/L (99-109); GFR ESTIMATE (CALCULATED) > 59 mL/min/; GLUCOSE 172 mg/dL (70-99); POTASSIUM 2.7 MEQ/L (3.7-5.4); SAMPLE HEMOLYSIS CHECK 0; SAMPLE ICTERIC CHECK 0; SAMPLE LIPEMIA CHECK 0; SODIUM 151 MEQ/L (136-147); UREA NITROGEN (BUN) 38 mg/dL (9-23)
[2017-03-01 19:25] LABS: POINT-OF-CARE METER ID UU14174225
[2017-03-01 19:34] VITALS: BP 124/58
[2017-03-02 00:03] VITALS: BP 132/65
[2017-03-02 00:15] LABS: POINT-OF-CARE METER ID UU14174225
[2017-03-02 04:10] VITALS: BP 125/67
[2017-03-02 05:40] LABS: POINT-OF-CARE METER ID UU13113717
[2017-03-02 06:40] LABS: EOSINOPHIL (%) 0.6 % (0-5); EOSINOPHIL COUNT 0.1 K/uL (0-0.3); HEMATOCRIT 26.8 % (38.0-50.0); IMMATURE GRANULOCYTE (%) 1.2 % (0.0-0.7); IMMATURE GRANULOCYTE COUNT 0.2 K/uL; LYMPHOCYTE COUNT 0.8 K/uL (1.0-2.8); MCH 25.8 PG (29.0-34.0); MCHC 28.7 G/DL (30.0-36.0); MCV 89.6 FL (86-99); MEAN PLAT.VOLUME 9.5 uM^3 (9.0-12.4); MONOCYTE (%) 4.4 % (3-12); MONOCYTE COUNT 0.9 K/uL (0-0.8); NEUTROPHIL (%) 89.8 % (45-76); PLATELET COUNT 334 K/uL (156-360); RBC DIS.WIDTH-CV 22.1 % (11.8-14.6); RBC DIS.WIDTH-SD 73.2 % (39-53); RED BLOOD COUNT 2.99 M/uL (4.00-5.50); WHITE BLOOD COUNT 20.1 K/uL (4.1-10.2)
[2017-03-02 07:17] LABS: ANION GAP 8 MEQ/L (2-14); CHLORIDE 113 MEQ/L (99-109); GFR ESTIMATE (CALCULATED) > 59 mL/min/; GLUCOSE 218 mg/dL (70-99); POTASSIUM 2.9 MEQ/L (3.7-5.4); SAMPLE HEMOLYSIS CHECK 0; SAMPLE ICTERIC CHECK 0; SAMPLE LIPEMIA CHECK 0; SODIUM 152 MEQ/L (136-147); UREA NITROGEN (BUN) 33 mg/dL (9-23)
[2017-03-02 08:00] VITALS: BP 158/66
[2017-03-02 12:00] VITALS: BP 180/71
[2017-03-02 12:40] LABS: POINT-OF-CARE METER ID UU13113717
[2017-03-02 13:37] LABS: MAGNESIUM 2.5 mg/dl (1.3-2.7)
[2017-03-02 16:04] VITALS: BP 152/67
[2017-03-02 18:28] LABS: POINT-OF-CARE METER ID UU13113717
[2017-03-02 20:00] VITALS: BP 143/60
[2017-03-02 23:23] LABS: POINT-OF-CARE METER ID UU13113717
[2017-03-03] VITALS: BP 138/63
[2017-03-03 04:04] VITALS: BP 127/60
[2017-03-03 06:39] LABS: POINT-OF-CARE METER ID UU13113717
[2017-03-03 07:00] LABS: EOSINOPHIL (%) 0.8 % (0-5); EOSINOPHIL COUNT 0.1 K/uL (0-0.3); HEMATOCRIT 25.9 % (38.0-50.0); IMMATURE GRANULOCYTE COUNT 0.2 K/uL; INSTRUMENT ABS NEUTROPHIL CT 15.3 K/uL; MCH 26.8 PG (29.0-34.0); MCHC 29.7 G/DL (30.0-36.0); MCV 90.2 FL (86-99); MEAN PLAT.VOLUME 9.7 uM^3 (9.0-12.4); MONOCYTE (%) 4.4 % (3-12); MONOCYTE COUNT 0.8 K/uL (0-0.8); NEUTROPHIL (%) 87.9 % (45-76); NEUTROPHIL COUNT 15.3 K/uL (1.8-6.4); NRBC (%) 0.1 /100 WBC (0-0); PLATELET COUNT 315 K/uL (156-360); RBC DIS.WIDTH-CV 22.2 % (11.8-14.6); RBC DIS.WIDTH-SD 73.5 % (39-53); RED BLOOD COUNT 2.87 M/uL (4.00-5.50); WHITE BLOOD COUNT 17.5 K/uL (4.1-10.2)
[2017-03-03 07:20] LABS: ANION GAP 4 MEQ/L (2-14); CHLORIDE 111 MEQ/L (99-109); GFR ESTIMATE (CALCULATED) > 59 mL/min/; GLUCOSE 203 mg/dL (70-99); SAMPLE HEMOLYSIS CHECK 0; SAMPLE ICTERIC CHECK 0; SAMPLE LIPEMIA CHECK 0; SODIUM 148 MEQ/L (136-147); UREA NITROGEN (BUN) 23 mg/dL (9-23)
[2017-03-03 08:45] VITALS: BP 138/67
[2017-03-03 11:17] VITALS: BP 133/59
[2017-03-03 12:25] LABS: POINT-OF-CARE METER ID UU14174225
[2017-03-03 15:19] VITALS: BP 134/65
[2017-03-03 18:11] LABS: POINT-OF-CARE METER ID UU14174225
[2017-03-03 19:47] VITALS: BP 172/69
[2017-03-03 21:28] LABS: POINT-OF-CARE METER ID UU13113717
[2017-03-04 00:29] VITALS: BP 147/63
[2017-03-04 05:16] VITALS: BP 154/72
[2017-03-04 06:52] LABS: EOSINOPHIL (%) 1.1 % (0-5); EOSINOPHIL COUNT 0.2 K/uL (0-0.3); HEMATOCRIT 27.8 % (38.0-50.0); IMMATURE GRANULOCYTE COUNT 0.4 K/uL; INSTRUMENT ABS NEUTROPHIL CT 16.4 K/uL; LYMPHOCYTE COUNT 1.6 K/uL (1.0-2.8); MCH 25.6 PG (29.0-34.0); MCHC 28.4 G/DL (30.0-36.0); MCV 90.3 FL (86-99); MEAN PLAT.VOLUME 9.2 uM^3 (9.0-12.4); MONOCYTE (%) 4.8 % (3-12); MONOCYTE COUNT 0.9 K/uL (0-0.8); NEUTROPHIL (%) 83.8 % (45-76); NEUTROPHIL COUNT 16.4 K/uL (1.8-6.4); NRBC (%) 0.2 /100 WBC (0-0); PLATELET COUNT 330 K/uL (156-360); RBC DIS.WIDTH-CV 22.1 % (11.8-14.6); RED BLOOD COUNT 3.08 M/uL (4.00-5.50); WHITE BLOOD COUNT 19.6 K/uL (4.1-10.2)
[2017-03-04 07:13] LABS: ANION GAP 6 MEQ/L (2-14); CHLORIDE 114 MEQ/L (99-109); GFR ESTIMATE (CALCULATED) > 59 mL/min/; GLUCOSE 162 mg/dL (70-99); SAMPLE HEMOLYSIS CHECK 0; SAMPLE ICTERIC CHECK 0; SAMPLE LIPEMIA CHECK 0; SODIUM 148 MEQ/L (136-147); UREA NITROGEN (BUN) 18 mg/dL (9-23)
[2017-03-04 07:18] LABS: POTASSIUM 4.1 MEQ/L (3.7-5.4)
[2017-03-04 07:22] VITALS: BP 169/75
[2017-03-04 12:52] VITALS: BP 140/88
[2017-03-04 13:01] LABS: POINT-OF-CARE METER ID UU13113717
[2017-03-04 18:00] LABS: POINT-OF-CARE METER ID UU13113717
[2017-03-04 20:37] VITALS: BP 134/60
[2017-03-05] VITALS (12 sets, daily range): BP systolic 126–193; BP diastolic 61–88
[2017-03-05 01:29] LABS: POINT-OF-CARE METER ID UU14174225
[2017-03-05 06:18] LABS: POINT-OF-CARE METER ID UU14174225
[2017-03-05 07:04] LABS: EOSINOPHIL (%) 1.4 % (0-5); EOSINOPHIL COUNT 0.2 K/uL (0-0.3); HEMATOCRIT 23.7 % (38.0-50.0); IMMATURE GRANULOCYTE (%) 3.7 % (0.0-0.7); IMMATURE GRANULOCYTE COUNT 0.5 K/uL; INSTRUMENT ABS NEUTROPHIL CT 11.7 K/uL; LYMPHOCYTE COUNT 1.5 K/uL (1.0-2.8); MCH 25.9 PG (29.0-34.0); MCHC 29.1 G/DL (30.0-36.0); MCV 89.1 FL (86-99); MEAN PLAT.VOLUME 9.5 uM^3 (9.0-12.4); MONOCYTE (%) 4.1 % (3-12); MONOCYTE COUNT 0.6 K/uL (0-0.8); NEUTROPHIL (%) 80.3 % (45-76); NEUTROPHIL COUNT 11.7 K/uL (1.8-6.4); NRBC (%) 0.3 /100 WBC (0-0); PLATELET COUNT 279 K/uL (156-360); RBC DIS.WIDTH-SD 71.8 % (39-53); RED BLOOD COUNT 2.66 M/uL (4.00-5.50); WHITE BLOOD COUNT 14.5 K/uL (4.1-10.2)
[2017-03-05 07:30] LABS: ANION GAP 6 MEQ/L (2-14); CHLORIDE 114 MEQ/L (99-109); GFR ESTIMATE (CALCULATED) > 59 mL/min/; GLUCOSE 230 mg/dL (70-99); POTASSIUM 4.1 MEQ/L (3.7-5.4); SAMPLE HEMOLYSIS CHECK 0; SAMPLE ICTERIC CHECK 0; SAMPLE LIPEMIA CHECK 0; SODIUM 145 MEQ/L (136-147); UREA NITROGEN (BUN) 19 mg/dL (9-23)
[2017-03-05 11:40] LABS: POINT-OF-CARE METER ID UU13113717
[2017-03-05 21:07] LABS: POINT-OF-CARE METER ID UU14174225
[2017-03-06] VITALS (8 sets, daily range): BP systolic 128–185; BP diastolic 70–76
[2017-03-06 07:08] LABS: EOSINOPHIL (%) 1.4 % (0-5); EOSINOPHIL COUNT 0.2 K/uL (0-0.3); HEMATOCRIT 33.2 % (38.0-50.0); IMMATURE GRANULOCYTE (%) 4.1 % (0.0-0.7); IMMATURE GRANULOCYTE COUNT 0.5 K/uL; INSTRUMENT ABS NEUTROPHIL CT 9.5 K/uL; LYMPHOCYTE COUNT 1.6 K/uL (1.0-2.8); MCHC 30.1 G/DL (30.0-36.0); MCV 86.5 FL (86-99); MEAN PLAT.VOLUME 9.4 uM^3 (9.0-12.4); MONOCYTE (%) 4.3 % (3-12); MONOCYTE COUNT 0.5 K/uL (0-0.8); NEUTROPHIL (%) 77.3 % (45-76); NEUTROPHIL COUNT 9.5 K/uL (1.8-6.4); NRBC (%) 0.4 /100 WBC (0-0); PLATELET COUNT 247 K/uL (156-360); RBC DIS.WIDTH-CV 19.8 % (11.8-14.6); RBC DIS.WIDTH-SD 62.5 % (39-53); WHITE BLOOD COUNT 12.3 K/uL (4.1-10.2)
[2017-03-06 07:09] LABS: RED BLOOD COUNT 3.84 M/uL (4.00-5.50)
[2017-03-06 07:18] LABS: ALKALINE PHOSPHATASE 74 IU/L (3-129); ANION GAP 10 MEQ/L (2-14); CHLORIDE 112 MEQ/L (99-109); GFR ESTIMATE (CALCULATED) > 59 mL/min/ (58.99-99999); GLUCOSE 259 mg/dL (70-99); POTASSIUM 3.9 MEQ/L (3.7-5.4); SAMPLE HEMOLYSIS CHECK 0; SAMPLE ICTERIC CHECK 0; SAMPLE LIPEMIA CHECK 0; SODIUM 143 MEQ/L (136-147); TOTAL BILIRUBIN 0.5 MG/DL (0.0-1.0); UREA NITROGEN (BUN) 19 mg/dL (9-23)
[2017-03-06 07:56] LABS: POINT-OF-CARE METER ID UU13113717
[2017-03-06 12:20] LABS: POINT-OF-CARE METER ID UU13113717
[2017-03-06 17:03] LABS: POINT-OF-CARE METER ID UU13113717
[2017-03-06 23:00] LABS: POINT-OF-CARE METER ID UU13113717
[2017-03-07 00:16] VITALS: BP 184/74
[2017-03-07 04:18] VITALS: BP 174/76
[2017-03-07 06:02] LABS: POINT-OF-CARE METER ID UU14174225
[2017-03-07 06:36] LABS: EOSINOPHIL (%) 0.1 % (0-5); IMMATURE GRANULOCYTE (%) 2.8 % (0.0-0.7); IMMATURE GRANULOCYTE COUNT 0.4 K/uL; INSTRUMENT ABS NEUTROPHIL CT 13.9 K/uL; LYMPHOCYTE COUNT 0.5 K/uL (1.0-2.8); MCH 26.4 PG (29.0-34.0); MCHC 30.3 G/DL (30.0-36.0); MCV 87.2 FL (86-99); MEAN PLAT.VOLUME 9.7 uM^3 (9.0-12.4); MONOCYTE (%) 0.9 % (3-12); MONOCYTE COUNT 0.1 K/uL (0-0.8); NEUTROPHIL (%) 92.6 % (45-76); NEUTROPHIL COUNT 13.9 K/uL (1.8-6.4); NRBC (%) 0.1 /100 WBC (0-0); PLATELET COUNT 233 K/uL (156-360); RBC DIS.WIDTH-SD 63.7 % (39-53); RED BLOOD COUNT 4.13 M/uL (4.00-5.50)
[2017-03-07 07:00] VITALS: BP 150/73
[2017-03-07 07:01] LABS: ANION GAP 7 MEQ/L (2-14); CHLORIDE 113 MEQ/L (99-109); GFR ESTIMATE (CALCULATED) > 59 mL/min/ (58.99-99999); GLUCOSE 329 mg/dL (70-99); SAMPLE HEMOLYSIS CHECK 0; SAMPLE ICTERIC CHECK 0; SAMPLE LIPEMIA CHECK 0; SODIUM 142 MEQ/L (136-147); UREA NITROGEN (BUN) 18 mg/dL (9-23)
[2017-03-07 07:02] LABS: POTASSIUM 4.7 MEQ/L (3.7-5.4)
[2017-03-07 11:12] VITALS: BP 169/88
[2017-03-07 11:13] LABS: POINT-OF-CARE METER ID UU13113717
[2017-03-07 15:09] VITALS: BP 172/82
[2017-03-07 16:19] LABS: POINT-OF-CARE METER ID UU13113717
[2017-03-07 22:41] LABS: POINT-OF-CARE METER ID UU13113717
[2017-03-08 00:29] VITALS: BP 153/81
[2017-03-08 06:12] LABS: EOSINOPHIL (%) 0 % (0-5); HEMATOCRIT 35.7 % (38.0-50.0); IMMATURE GRANULOCYTE (%) 1.6 % (0.0-0.7); IMMATURE GRANULOCYTE COUNT 0.3 K/uL; INSTRUMENT ABS NEUTROPHIL CT 14.4 K/uL; LYMPHOCYTE COUNT 0.7 K/uL (1.0-2.8); MCH 26.7 PG (29.0-34.0); MCHC 30.3 G/DL (30.0-36.0); MCV 88.1 FL (86-99); MEAN PLAT.VOLUME 9.7 uM^3 (9.0-12.4); MONOCYTE COUNT 0.5 K/uL (0-0.8); NEUTROPHIL (%) 91.1 % (45-76); NEUTROPHIL COUNT 14.4 K/uL (1.8-6.4); PLATELET COUNT 238 K/uL (156-360); RBC DIS.WIDTH-CV 19.9 % (11.8-14.6); RBC DIS.WIDTH-SD 64.1 % (39-53); RED BLOOD COUNT 4.05 M/uL (4.00-5.50); WHITE BLOOD COUNT 15.9 K/uL (4.1-10.2)
[2017-03-08 06:38] LABS: ANION GAP 5 MEQ/L (2-14); CHLORIDE 114 MEQ/L (99-109); GFR ESTIMATE (CALCULATED) > 59 mL/min/ (58.99-99999); GLUCOSE 310 mg/dL (70-99); POTASSIUM 4.5 MEQ/L (3.7-5.4); SAMPLE HEMOLYSIS CHECK 0; SAMPLE ICTERIC CHECK 0; SAMPLE LIPEMIA CHECK 0; SODIUM 142 MEQ/L (136-147); UREA NITROGEN (BUN) 22 mg/dL (9-23)
[2017-03-08 07:03] VITALS: BP 157/75
[2017-03-08 07:26] LABS: POINT-OF-CARE METER ID UU13113717
[2017-03-08 11:11] LABS: POINT-OF-CARE METER ID UU13113717
[2017-03-08 15:07] VITALS: BP 143/71
[2017-03-08 16:28] LABS: POINT-OF-CARE METER ID UU13113717
[2017-03-08 20:40] LABS: POINT-OF-CARE METER ID UU13113717
[2017-03-09 00:24] VITALS: BP 165/74
[2017-03-09 07:02] LABS: EOSINOPHIL (%) 0 % (0-5); HEMATOCRIT 33.4 % (38.0-50.0); IMMATURE GRANULOCYTE (%) 1.1 % (0.0-0.7); IMMATURE GRANULOCYTE COUNT 0.2 K/uL; INSTRUMENT ABS NEUTROPHIL CT 16.4 K/uL; LYMPHOCYTE COUNT 0.6 K/uL (1.0-2.8); MCH 25.9 PG (29.0-34.0); MCHC 29.6 G/DL (30.0-36.0); MCV 87.4 FL (86-99); MEAN PLAT.VOLUME 9.3 uM^3 (9.0-12.4); MONOCYTE (%) 2.5 % (3-12); MONOCYTE COUNT 0.5 K/uL (0-0.8); NEUTROPHIL (%) 92.8 % (45-76); NEUTROPHIL COUNT 16.4 K/uL (1.8-6.4); PLATELET COUNT 235 K/uL (156-360); RBC DIS.WIDTH-CV 19.9 % (11.8-14.6); RBC DIS.WIDTH-SD 63.4 % (39-53); RED BLOOD COUNT 3.82 M/uL (4.00-5.50); WHITE BLOOD COUNT 17.7 K/uL (4.1-10.2)
[2017-03-09 07:43] LABS: ANION GAP 7 MEQ/L (2-14); CHLORIDE 113 MEQ/L (99-109); GFR ESTIMATE (CALCULATED) > 59 mL/min/ (58.99-99999); GLUCOSE 313 mg/dL (70-99); POTASSIUM 4.9 MEQ/L (3.7-5.4); SAMPLE HEMOLYSIS CHECK 0; SAMPLE ICTERIC CHECK 0; SAMPLE LIPEMIA CHECK 0; SODIUM 144 MEQ/L (136-147); UREA NITROGEN (BUN) 25 mg/dL (9-23)
[2017-03-09 09:28] VITALS: BP 155/102
[2017-03-09 12:18] LABS: POINT-OF-CARE METER ID UU14174225
[2017-03-09 12:31] VITALS: BP 148/80
[2017-03-09 16:50] VITALS: BP 185/80
[2017-03-09 17:29] LABS: POINT-OF-CARE METER ID UU14174225
[2017-03-09 20:45] LABS: POINT-OF-CARE METER ID UU14174225
[2017-03-10 00:37] VITALS: BP 162/72
[2017-03-10 06:36] LABS: EOSINOPHIL (%) 0 % (0-5); HEMATOCRIT 33.4 % (38.0-50.0); IMMATURE GRANULOCYTE (%) 1.5 % (0.0-0.7); IMMATURE GRANULOCYTE COUNT 0.3 K/uL; INSTRUMENT ABS NEUTROPHIL CT 15.7 K/uL; LYMPHOCYTE COUNT 0.6 K/uL (1.0-2.8); MCH 26.9 PG (29.0-34.0); MCHC 30.2 G/DL (30.0-36.0); MCV 89.1 FL (86-99); MEAN PLAT.VOLUME 9.8 uM^3 (9.0-12.4); MONOCYTE (%) 2.6 % (3-12); MONOCYTE COUNT 0.5 K/uL (0-0.8); NEUTROPHIL (%) 92.3 % (45-76); NEUTROPHIL COUNT 15.7 K/uL (1.8-6.4); PLATELET COUNT 263 K/uL (156-360); RBC DIS.WIDTH-CV 19.9 % (11.8-14.6); RBC DIS.WIDTH-SD 65.4 % (39-53); RED BLOOD COUNT 3.75 M/uL (4.00-5.50)
[2017-03-10 07:03] LABS: ANION GAP 7 MEQ/L (2-14); CHLORIDE 110 MEQ/L (99-109); GFR ESTIMATE (CALCULATED) > 59 mL/min/ (58.99-99999); GLUCOSE 310 mg/dL (70-99); SAMPLE HEMOLYSIS CHECK 0; SAMPLE ICTERIC CHECK 0; SAMPLE LIPEMIA CHECK 0; SODIUM 142 MEQ/L (136-147); UREA NITROGEN (BUN) 28 mg/dL (9-23)
[2017-03-10 07:47] VITALS: BP 152/78
[2017-03-10 08:37] LABS: POINT-OF-CARE METER ID UU13113717
[2017-03-10 12:29] LABS: POINT-OF-CARE METER ID UU14174225
[2017-03-10 16:00] VITALS: BP 165/64
[2017-03-10 17:36] LABS: POINT-OF-CARE METER ID UU13113717
[2017-03-11 00:19] LABS: POINT-OF-CARE METER ID UU14174225
[2017-03-11 00:34] VITALS: BP 158/70
[2017-03-11 06:23] LABS: POINT-OF-CARE METER ID UU13113717
[2017-03-11 06:57] LABS: ANION GAP 7 MEQ/L (2-14); CHLORIDE 110 MEQ/L (99-109); GFR ESTIMATE (CALCULATED) > 59 mL/min/ (58.99-99999); GLUCOSE 258 mg/dL (70-99); POTASSIUM 4.7 MEQ/L (3.7-5.4); SAMPLE HEMOLYSIS CHECK 0; SAMPLE ICTERIC CHECK 0; SAMPLE LIPEMIA CHECK 0; SODIUM 141 MEQ/L (136-147); UREA NITROGEN (BUN) 27 mg/dL (9-23)
[2017-03-11 07:08] LABS: EOSINOPHIL (%) 0 % (0-5); HEMATOCRIT 33.6 % (38.0-50.0); IMMATURE GRANULOCYTE (%) 1.5 % (0.0-0.7); IMMATURE GRANULOCYTE COUNT 0.3 K/uL; INSTRUMENT ABS NEUTROPHIL CT 14.7 K/uL; LYMPHOCYTE COUNT 0.6 K/uL (1.0-2.8); MCH 25.7 PG (29.0-34.0); MCHC 28.3 G/DL (30.0-36.0); MCV 90.8 FL (86-99); MONOCYTE (%) 3.6 % (3-12); MONOCYTE COUNT 0.6 K/uL (0-0.8); NEUTROPHIL (%) 90.8 % (45-76); NEUTROPHIL COUNT 14.7 K/uL (1.8-6.4); NRBC (%) 0.2 /100 WBC (0-0); RBC DIS.WIDTH-CV 19.4 % (11.8-14.6); WHITE BLOOD COUNT 16.2 K/uL (4.1-10.2)
[2017-03-11 07:11] LABS: MEAN PLAT.VOLUME 9.4 uM^3 (9.0-12.4); PLATELET COUNT 250 K/uL (156-360)
[2017-03-11 07:45] LABS: POINT-OF-CARE METER ID UU14174225
[2017-03-11 08:03] VITALS: BP 155/86
[2017-03-11 11:48] LABS: POINT-OF-CARE METER ID UU13113717
[2017-03-11] MEDS ORDERED: DIFLUCAN 440 MG/1 ML GT (12:10)
[2017-03-11] MEDS ORDERED: Tylenol GT (12:11)
[2017-03-11] MEDS ORDERED: LEVEMIR100 UNIT/2 SC (12:12)
[2017-03-11] MEDS ORDERED: ZOLPIDEM TARTRAT5 MG PO (12:13)
[2017-03-11 16:27] VITALS: BP 161/88
[2017-03-11 16:58] LABS: POINT-OF-CARE METER ID UU14174225
[2017-03-12 00:06] VITALS: BP 160/75
[2017-03-12 00:21] LABS: POINT-OF-CARE METER ID UU14174225
[2017-03-12 06:04] LABS: POINT-OF-CARE METER ID UU14174225
[2017-03-12 08:00] VITALS: BP 179/74
[2017-03-12 12:05] LABS: POINT-OF-CARE METER ID UU14174225
[2017-03-12 16:00] VITALS: BP 159/67
[2017-03-12 20:18] LABS: POINT-OF-CARE METER ID UU14174225
[2017-03-13 00:13] LABS: POINT-OF-CARE METER ID UU13113717
[2017-03-13 00:20] VITALS: BP 186/81
[2017-03-13 06:08] LABS: POINT-OF-CARE METER ID UU13113717
[2017-03-13 06:51] LABS: BASOPHIL COUNT 0.1 K/uL (0-0.1); EOSINOPHIL (%) 0.5 % (0-5); EOSINOPHIL COUNT 0.1 K/uL (0-0.3); HEMATOCRIT 33.7 % (38.0-50.0); IMMATURE GRANULOCYTE (%) 3.1 % (0.0-0.7); IMMATURE GRANULOCYTE COUNT 0.5 K/uL; INSTRUMENT ABS NEUTROPHIL CT 12.6 K/uL; MCH 25.7 PG (29.0-34.0); MEAN PLAT.VOLUME 9.6 uM^3 (9.0-12.4); MONOCYTE (%) 3.5 % (3-12); MONOCYTE COUNT 0.5 K/uL (0-0.8); NEUTROPHIL (%) 85.6 % (45-76); NEUTROPHIL COUNT 12.6 K/uL (1.8-6.4); NRBC (%) 0.2 /100 WBC (0-0); PLATELET COUNT 297 K/uL (156-360); RBC DIS.WIDTH-CV 18.6 % (11.8-14.6); RBC DIS.WIDTH-SD 58.9 % (39-53); RED BLOOD COUNT 3.93 M/uL (4.00-5.50); WHITE BLOOD COUNT 14.7 K/uL (4.1-10.2)
[2017-03-13 06:52] LABS: MCV 85.8 FL (86-99)
[2017-03-13 07:08] LABS: ANION GAP 9 MEQ/L (2-14); CHLORIDE 108 MEQ/L (99-109); GFR ESTIMATE (CALCULATED) > 59 mL/min/ (58.99-99999); GLUCOSE 139 mg/dL (70-99); POTASSIUM 4.2 MEQ/L (3.7-5.4); SAMPLE HEMOLYSIS CHECK 0; SAMPLE ICTERIC CHECK 0; SAMPLE LIPEMIA CHECK 0; SODIUM 140 MEQ/L (136-147); UREA NITROGEN (BUN) 22 mg/dL (9-23)
[2017-03-13 07:16] VITALS: BP 145/70
[2017-03-13 07:38] LABS: POINT-OF-CARE METER ID UU14174225
[2017-03-13 12:26] LABS: POINT-OF-CARE METER ID UU13113717; POINT-OF-CARE USER ID STWAMT
[2017-03-13 15:05] VITALS: BP 133/71
[2017-03-13 16:20] LABS: POINT-OF-CARE METER ID UU14174225
[2017-03-13 23:49] LABS: POINT-OF-CARE METER ID UU14174225
[2017-03-14 00:18] VITALS: BP 181/76
[2017-03-14 06:00] LABS: EOSINOPHIL (%) 0.5 % (0-5); EOSINOPHIL COUNT 0.1 K/uL (0-0.3); HEMATOCRIT 32.5 % (38.0-50.0); IMMATURE GRANULOCYTE (%) 3.7 % (0.0-0.7); IMMATURE GRANULOCYTE COUNT 0.5 K/uL; INSTRUMENT ABS NEUTROPHIL CT 10.5 K/uL; LYMPHOCYTE COUNT 1.1 K/uL (1.0-2.8); MCHC 30.2 G/DL (30.0-36.0); MCV 86.2 FL (86-99); MEAN PLAT.VOLUME 9.6 uM^3 (9.0-12.4); MONOCYTE (%) 4.4 % (3-12); MONOCYTE COUNT 0.6 K/uL (0-0.8); NEUTROPHIL (%) 82.8 % (45-76); NEUTROPHIL COUNT 10.5 K/uL (1.8-6.4); PLATELET COUNT 322 K/uL (156-360); RBC DIS.WIDTH-CV 18.7 % (11.8-14.6); RBC DIS.WIDTH-SD 58.9 % (39-53); RED BLOOD COUNT 3.77 M/uL (4.00-5.50); WHITE BLOOD COUNT 12.6 K/uL (4.1-10.2)
[2017-03-14 06:19] LABS: POINT-OF-CARE METER ID UU14174225
[2017-03-14 06:24] LABS: ANION GAP 6 MEQ/L (2-14); CHLORIDE 105 MEQ/L (99-109); GFR ESTIMATE (CALCULATED) > 59 mL/min/ (58.99-99999); GLUCOSE 147 mg/dL (70-99); POTASSIUM 4.1 MEQ/L (3.7-5.4); SAMPLE HEMOLYSIS CHECK 0; SAMPLE ICTERIC CHECK 0; SAMPLE LIPEMIA CHECK 0; SODIUM 136 MEQ/L (136-147); UREA NITROGEN (BUN) 19 mg/dL (9-23)
[2017-03-14 07:43] VITALS: BP 148/76; BP 171/82
[2017-03-14 12:13] LABS: POINT-OF-CARE METER ID UU13113717
== END 2017-03-14 14:50 | DRG 64 ==
LOC: DELPENDDIS → EME 10:42 → EDOF 15:52 → 5SOUTH 15:52 → 4EAST 15:52 → ENRESERV 16:08 → 4EAST 02-26 02:01 → ENRESERV 02-28 22:48 → 5SOUTH 02-28 23:41 → ENPENDDIS 03-11 13:11 → 5SOUTH 03-14 14:50
PROVIDERS: Emergency Medicine; Family Medicine; Hospitalist
PROC: 30233N1 Transfusion of Nonautologous Red Blood Cells into Peripheral Vein, Percutaneous Approach (ICD-10-PCS; principal; 2017-03-05)
DX: I63.9 Cerebral infarction, unspecified (principal); G81.91 Hemiplegia, unspecified affecting right dominant side; A41.9 Sepsis, unspecified organism; R65.21 Severe sepsis with septic shock; J96.21 Acute and chronic respiratory failure with hypoxia; J69.0 Pneumonitis due to inhalation of food and vomit; N39.0 Urinary tract infection, site not specified; D64.9 Anemia, unspecified; E83.51 Hypocalcemia; E83.39 Other disorders of phosphorus metabolism; G93.40 Encephalopathy, unspecified; E87.0 Hyperosmolality and hypernatremia; E87.6 Hypokalemia; K59.00 Constipation, unspecified; L89.150 Pressure ulcer of sacral region, unstageable; R74.8 Abnormal levels of other serum enzymes; J44.9 Chronic obstructive pulmonary disease, unspecified; I25.10 Atherosclerotic heart disease of native coronary artery without angina pectoris; E78.5 Hyperlipidemia, unspecified; E11.40 Type 2 diabetes mellitus with diabetic neuropathy, unspecified; E11.51 Type 2 diabetes mellitus with diabetic peripheral angiopathy without gangrene; I11.0 Hypertensive heart disease with heart failure; I50.9 Heart failure, unspecified; I25.5 Ischemic cardiomyopathy; I48.0 Paroxysmal atrial fibrillation; R13.10 Dysphagia, unspecified; G47.31 Primary central sleep apnea; I45.10 Unspecified right bundle-branch block; S21.209A Unspecified open wound of unspecified back wall of thorax without penetration into thoracic cavity, initial encounter; X58.XXXA Exposure to other specified factors, initial encounter; T81.89XA Other complications of procedures, not elsewhere classified, initial encounter; Y83.3 Surgical operation with formation of external stoma as the cause of abnormal reaction of the patient, or of later complication, without mention of misadventure at the time of the procedure; I70.213 Atherosclerosis of native arteries of extremities with intermittent claudication, bilateral legs; E66.9 Obesity, unspecified; Z66 Do not resuscitate; I69.354 Hemiplegia and hemiparesis following cerebral infarction affecting left non-dominant side; I69.320 Aphasia following cerebral infarction; Z93.1 Gastrostomy status; Z95.1 Presence of aortocoronary bypass graft; I25.2 Old myocardial infarction; Z79.4 Long term (current) use of insulin; Z95.5 Presence of coronary angioplasty implant and graft; Z89.421 Acquired absence of other right toe(s); Z88.2 Allergy status to sulfonamides; Z87.891 Personal history of nicotine dependence; Z68.29 Body mass index [BMI] 29.0-29.9, adult
CPT/HCPCS: 36600; 70450; 71010; 74000; 74020; 80048; 80053; 80061; 80069; 81003; 82803; 82948; 83036; 83605; 83735; 83880; 84100; 84484; 85025; 85025 91; 85027; 85610; 86850; 86900; 86901; 86920; 87040; 87086; 87106; 87641; 92526 GN; 92610 GN; 93005; 94002; 94640 76; 94760; 94799; 99202; 99281; 99285; C1755; J0360; J0692; J0696; J1815; J1940; J2543; J2997; J3480; J7030; J7050; P9016